=== PATIENT | male | born 1995 | race African-American/Black ===

== ENCOUNTER 2017-04-08 14:03 | Emergency (ER) | payer SELFPAY ==
--- NOTE | 2017-04-08 14:54 | ER Document Report ---
ED Medical Screen (RME) - General Chief Complaint: Nausea/Vomiting Stated Complaint: VOMITING Time Seen by Provider: 04/08/17 14:50 Notes: This 21-year-old male patient complains of nausea with occasional vomiting for 1 -2 weeks. There is also intermittent diarrhea. He reports weight loss. He does not have an appetite. When asked about fever, he states "I do be hot a lot ". He is on no regular medications, no past medical history. I have greeted and performed a rapid initial assessment of this patient. A comprehensive ED assessment and evaluation of the patient, analysis of test results and completion of the medical decision making process will be conducted by additional ED providers. - Related Data Allergies/Adverse Reactions: No Known Allergies Allergy (Verified 04/08/17 14:41) Past Medical History - Social History Chew tobacco use (# tins/day): No Frequency of alcohol use: Rare Drug Abuse: None Renal/ Medical History: Denies: Hx Peritoneal Dialysis - Immunizations Hx Diphtheria, Pertussis, Tetanus Vaccination: No Physical Exam - Vital signs Vitals: Temp Pulse Resp BP Pulse Ox 98.3 F 70 16 105/74 100 04/08/17 14:16 04/08/17 14:16 04/08/17 14:16 04/08/17 14:16 04/08/17 14:16 Course - Vital Signs Vital signs: Temp Pulse Resp BP Pulse Ox 98.3 F 70 16 105/74 100 04/08/17 14:16 04/08/17 14:16 04/08/17 14:16 04/08/17 14:16 04/08/17 14:16
[2017-04-08] MEDS ORDERED: ONDANSETRON 4 MG TAB.RAPDIS PO ONE (15:17)
[2017-04-08 15:25] LABS: ABSOLUTE EOSINOPHILS # (AUTO) 0.2 10^3/uL (0.0-0.6); ABSOLUTE LYMPHOCYTES (AUTO) 1.7 10^3/uL (0.5-4.7); ABSOLUTE MONOCYTES (AUTO) 0.6 10^3/uL (0.1-1.4); ABSOLUTE NEUT (AUTO) 2.4 10^3/uL (1.7-8.2); BASOPHILS % (AUTO) 0.8 % (0-2); EOSINOPHILS % (AUTO) 3.8 % (0-6); HEMATOCRIT 43.2 % (37.9-51.0); HEMOGLOBIN 14.7 g/dL (13.5-17.0); HGB HCT DIFFERENCE 0.9; LYMPHOCYTES % (AUTO) 34.8 % (13-45); MEAN CORPUSCULAR HEMOGLOBIN 32.2 pg (27.0-33.4); MEAN CORPUSCULAR HGB CONC 33.9 g/dL (32.0-36.0); MEAN CORPUSCULAR VOLUME 95 fl (80-97); MONOCYTES % (AUTO) 11.4 % (3-13); RED BLOOD COUNT 4.55 10^6/uL (4.35-5.55); RED CELL DISTRIBUTION WIDTH 12.6 % (11.5-14.0); SEGMENTED NEUTROPHILS % (AUTO) 49.2 % (42-78); WHITE BLOOD COUNT 4.9 10^3/uL (4.0-10.5)
[2017-04-08 15:27] LABS: APPEARANCE,URINE CLEAR; BILIRUBIN,URINE NEGATIVE (NEGATIVE); GLUCOSE, URINE NEGATIVE (NEGATIVE); KETONES,URINE NEGATIVE (NEGATIVE); LEUKOCYTE ESTERASE,URINE NEGATIVE (NEGATIVE); NITRITE,URINE NEGATIVE (NEGATIVE); PROTEIN,URINE NEGATIVE (NEGATIVE); URINE SPECIFIC GRAVITY 1.015; UROBILINOGEN,URINE NEGATIVE mg/dL (<2.0)
[2017-04-08 15:43] LABS: ALANINE AMINOTRANSFERASE 58 U/L (21-72); ALBUMIN 4.4 g/dL (3.5-5.0); ALKALINE PHOSPHATASE 55 U/L (38-126); ANION GAP 12 (5-19); ASPARTATE AMINO TRANSFERASE 35 U/L (17-59); BILIRUBIN,DIRECT 0.2 mg/dL (0.0-0.4); BILIRUBIN,TOTAL 0.8 mg/dL (0.2-1.3); BLOOD UREA NITROGEN 11 mg/dL (7-20); CALCIUM 9.9 mg/dL (8.4-10.2); CARBON DIOXIDE 24 mmol/L (22-30); CHLORIDE 107 mmol/L (98-107); CREATININE RESULT 1.06 mg/dL (0.52-1.25); GLUCOSE 85 mg/dL (75-110); MAGNESIUM 2.1 mg/dL (1.6-2.3); POTASSIUM 4.5 mmol/L (3.6-5.0); SODIUM 142.6 mmol/L (137-145)
[2017-04-08 15:45] LABS: URINE BARBITURATES SCREEN NEGATIVE; URINE METHADONE SCREEN NEGATIVE; URINE OPIATES LOW NEGATIVE; URINE PHENCYCLIDINE SCREEN NEGATIVE
--- NOTE | 2017-04-08 16:00 | ER Document Report ---
ED General - General Chief Complaint: Nausea/Vomiting Stated Complaint: VOMITING Time Seen by Provider: 04/08/17 14:50 Mode of Arrival: Ambulatory Information source: Patient Notes: 21-year-old male presents with complaints of nausea vomiting 1-2 times a day for the past 2 weeks. Patient denies any fevers chills. Patient admits it is green, denies any specific pain anywhere admits to bad taste believes he may have gastric reflux - HPI Onset: Other Onset/Duration: Intermittent Quality of pain: No pain Severity: Mild Pain Level: Denies Associated symptoms: Nausea, Vomiting Exacerbated by: Denies Relieved by: Denies Similar symptoms previously: No Recently seen / treated by doctor: No - Related Data Allergies/Adverse Reactions: No Known Allergies Allergy (Verified 04/08/17 14:41) Past Medical History - Social History Smoking Status: Current Every Day Smoker Cigarette use (# per day): Yes Chew tobacco use (# tins/day): No Smoking Education Provided: No Frequency of alcohol use: Rare Drug Abuse: None Family History: Reviewed & Not Pertinent Patient has suicidal ideation: No Patient has homicidal ideation: No Renal/ Medical History: Denies: Hx Peritoneal Dialysis - Immunizations Hx Diphtheria, Pertussis, Tetanus Vaccination: No Review of Systems - Review of Systems Notes: PHYSICAL EXAMINATION: GENERAL: Well-appearing, well-nourished and in no acute distress. HEAD: Atraumatic, normocephalic. EYES: Pupils equal round and reactive to light, extraocular movements intact, sclera anicteric, conjunctiva are normal. ENT: Nares patent, oropharynx clear without exudates. Moist mucous membranes. NECK: Normal range of motion, supple without lymphadenopathy LUNGS: Breath sounds clear to auscultation bilaterally and equal. No wheezes rales or rhonchi. HEART: Regular rate and rhythm without murmurs ABDOMEN: Soft, nontender, nondistended abdomen. No guarding, no rebound. No masses appreciated. Musculoskeletal: Normal range of motion, no pitting or edema. No cyanosis. NEUROLOGICAL: Cranial nerves grossly intact. Normal speech, normal gait. Normal sensory, motor exams PSYCH: Normal mood, normal affect. SKIN: Warm, Dry, normal turgor, no rashes or lesions noted. Physical Exam - Vital signs Vitals: Temp Pulse Resp BP Pulse Ox 98.3 F 70 16 105/74 100 04/08/17 14:16 04/08/17 14:16 04/08/17 14:16 04/08/17 14:16 04/08/17 14:16 Course - Re-evaluation Re-evalutation: 04/08/17 15:58 Labwork physical examination notes a very well-appearing male in no acute distress. Patient admits he has no pain. I will therefore start the patient on nausea control and medication for his gastric reflux otherwise he is stable for discharge After performing a Medical Screening Examination, I estimate there is LOW risk for ACUTE APPENDICITIS, BOWEL OBSTRUCTION, ACUTE CHOLECYSTITIS, PERFORATED DIVERTICULITIS, INCARCERATED HERNIA, PANCREATITIS, or PERFORATED ULCER, thus I consider the discharge disposition reasonable. Also, there is no evidence or peritonitis, sepsis, or toxicity. I have reevaluated this patient multiple times and no significant life threatening changes are noted. The patient and I have discussed the diagnosis and risks, and we agree with discharging home with close follow-up with the understanding that symptoms and presentations can change. We also discussed returning to the Emergency Department immediately if new or worsening symptoms occur. We have discussed the symptoms which are most concerning (e.g., bloody stool, fever, changing or worsening pain, intractable vomiting - standard verbal up date) that necessitate immediate return. - Vital Signs Vital signs: Temp Pulse Resp BP Pulse Ox 98.3 F 70 16 105/74 100 04/08/17 14:16 04/08/17 14:16 04/08/17 14:16 04/08/17 14:16 04/08/17 14:16 - Laboratory Result Diagrams: 04/08/17 15:06 04/08/17 15:06 Laboratory results interpreted by me: 04/08/17 15:06 Urine Ascorbic Acid 20 H Discharge - Discharge Clinical Impression: Nausea & vomiting Qualifiers: Vomiting type: unspecified Vomiting Intractability: non-intractable Qualified Code(s): R11.2 - Nausea with vomiting, unspecified GERD (gastroesophageal reflux disease) Qualifiers: Esophagitis presence: with esophagitis Qualified Code(s): K21.0 - Gastro- esophageal reflux disease with esophagitis Condition: Stable Disposition: HOME, SELF-CARE Instructions: Antinausea Medication ([facility]), Vomiting ([facility]) Prescriptions: Famotidine [Pepcid 20 mg Tablet] 20 mg PO DAILY #30 tablet Ondansetron HCl [Zofran] 4 mg PO Q6 #20 tablet Referrals: JOANNE TATE MD [ACTIVE STAFF] - Follow up tomorrow
[2017-04-08 16:38] VITALS: BP 123/74
== END 2017-04-08 16:19 | disposition home or self-care (01) ==
LOC: EDBD → ER 14:03
DX: K21.0 Gastro-esophageal reflux disease with esophagitis (principal); R11.2 Nausea with vomiting, unspecified; F17.210 Nicotine dependence, cigarettes, uncomplicated
CPT/HCPCS: 99283; 36415; 83735; 85025; 80053; 81001; 80307; S0119

== ENCOUNTER 2017-04-18 14:52 | Emergency (ER) | payer SELFPAY ==
[2017-04-18] MEDS ORDERED: IBUPROFEN 800 MG TABLET PO ONE (15:13)
[2017-04-18 15:21] VITALS: BP 139/83
--- NOTE | 2017-04-18 15:21 | ER Document Report ---
ED Extremity Problem, Upper - General Chief Complaint: Elbow Injury Stated Complaint: LEFT ELBOW PAIN Time Seen by Provider: 04/18/17 15:13 Mode of Arrival: Ambulatory Information source: Patient Notes: 21-year-old male presents to ED for pain to his left elbow. He states about 1230 to 1:00 he slipped while taking groceries out of into [place] slipped and fell on the grass landing on his elbow. States it is extremely painful to move his elbow. He states he has dislocated this elbow in the past and had surgery on it. - HPI Patient complains to provider of: Injury, Pain, Left, Elbow Onset: This afternoon Recent injury: Yes Where: Outdoors Quality of pain: Sharp Severity of pain: Moderate Pain Level: 4 Context: Fall Associated symptoms: Other - Pain and swelling to his left elbow Exacerbated by: Movement Similar symptoms previously: Yes Recently seen / treated by doctor: No - Related Data Allergies/Adverse Reactions: No Known Allergies Allergy (Verified 04/18/17 14:57) Past Medical History - General Information source: Patient - Social History Smoking Status: Current Every Day Smoker Cigarette use (# per day): Yes - Cigarettes a day Chew tobacco use (# tins/day): No Smoking Education Provided: Yes - In 2 minutes Frequency of alcohol use: None Drug Abuse: None Lives with: Alone - With his son Family History: DM. denies: Arthritis, CAD, COPD, CVA, Hyperlipidemia, Hypertension, Malignancy, Thyroid Disfunction - Past Medical History Cardiac Medical History: Reports: None Pulmonary Medical History: Reports: None EENT Medical History: Reports: None Neurological Medical History: Reports: None Endocrine Medical History: Reports: None Renal/ Medical History: Reports: None Malignancy Medical History: Reports None GI Medical History: Reports: None Musculoskeltal Medical History: Reports Hx Musculoskeletal Trauma - Dislocated left elbow Skin Medical History: Reports None Psychiatric Medical History: Reports: None Traumatic Medical History: Reports: None Infectious Medical History: Reports: None Past Surgical History: Reports: Hx Inguinal Hernia - Right, Hx Orthopedic Surgery - Left elbow to repair dislocation - Immunizations Hx Diphtheria, Pertussis, Tetanus Vaccination: No Review of Systems - Review of Systems Constitutional: No symptoms reported EENT: No symptoms reported Cardiovascular: No symptoms reported Respiratory: No symptoms reported Gastrointestinal: No symptoms reported Genitourinary: No symptoms reported Male Genitourinary: No symptoms reported Musculoskeletal: Other - Pain and swelling to left elbow Skin: No symptoms reported Hematologic/Lymphatic: No symptoms reported Neurological/Psychological: No symptoms reported Physical Exam - Vital signs Vitals: Temp Pulse Resp BP Pulse Ox 97.8 F 80 20 139/83 H 99 04/18/17 15:00 04/18/17 15:00 04/18/17 15:04/18/17 15:00 04/18/17 15:00 Interpretation: Normal - General General appearance: Appears well, Alert - HEENT Head: Normocephalic, Atraumatic Eyes: Normal Pupils: PERRL - Respiratory Respiratory status: No respiratory distress Chest status: Nontender Breath sounds: Normal Chest palpation: Normal - Cardiovascular Rhythm: Regular Heart sounds: Normal auscultation Murmur: No - Abdominal Inspection: Normal Distension: No distension Bowel sounds: Normal Tenderness: Nontender Organomegaly: No organomegaly - Back Back: Normal, Nontender - Extremities General upper extremity: Normal inspection, Normal color, Normal temperature General lower extremity: Normal inspection, Nontender, Normal color, Normal ROM , Normal temperature, Normal weight bearing. No: Rigo's sign Elbow: Tender, Ecchymosis, Limited ROM - Due to pain - Neurological Neuro grossly intact: Yes Cognition: Normal Orientation: AAOx4 [place] Coma Scale Eye Opening: Spontaneous [place] Coma Scale Verbal: Oriented [place] Coma Scale Motor: Obeys Commands Z[place] Coma Scale Total: 15 Speech: Normal Motor strength normal: LUE, RUE, LLE, RLE Sensory: Normal - Psychological Associated symptoms: Normal affect, Normal mood - Skin Skin Temperature: Warm Skin Moisture: Dry Skin Color: Normal Course - Re-evaluation Re-evalutation: 04/18/17 17:57 Discussed x-ray with Dr. Sheppard and written report given to patient after discussing with patient. Patient was put in a long arm posterior splint and a sling. Patient discharged home with a small prescription for [place] and instructed to follow-up with orthopedic. - Vital Signs Vital signs: Temp Pulse Resp BP Pulse Ox 97.8 F 80 20 139/83 H 99 04/18/17 15:00 04/18/17 15:00 04/18/17 15:00 04/18/17 15:00 04/18/17 15:00 - Diagnostic Test Radiology reviewed: Image reviewed, Reports reviewed Procedures - Immobilization Left Elbow Time completed: 17:00 Immobilizer type: Short Arm Posterior Performed by: PCT Post-Proc Neuro Vasc Exam: Normal Alignment checked and good: Yes Discharge - Discharge Clinical Impression: Left elbow pain Injury of left elbow Qualifiers: Encounter type: initial encounter Qualified Code(s): S59.902A - Unspecified injury of left elbow, initial encounter Condition: Stable Disposition: HOME, SELF-CARE Additional Instructions: You were seen today for a left elbow injury with pain to the elbow. SPRAIN: Your injury is a sprain. A sprain results from stretching or tearing of the ligaments, usually from a twisting injury. The ligaments will require time and protection in order to heal properly. Many sprains are quite disabling and should be taken seriously. The usual initial treatment of sprains is cold packs, elevation, and rest of the injured area. Your physician has assessed the seriousness of your ligament injury, and has outlined a treatment plan. Understand that this treatment may change, depending on how you progress. If a re-examination was recommended, it is important that you follow up as instructed. Call the doctor any time if there is severe pain, numbness, or loss of function in the injured area. SPLINT PRECAUTIONS: A splint has been placed. This will protect the area while healing begins. Your problem does NOT normally require a cast. It MUST, however, be held still! Keep the splint on ALL THE TIME until instructed to remove it by the doctor. As you begin to use the area, be careful. You shouldn't do anything which causes discomfort -- you may disturb the injury even with the splint in place. After the initial period of rest and elevation, if splint does not prevent pain when you move, come back. You may require placement of a different splint , or a cast. If there is unexpected severe pain, or numbness, discoloration, or swelling beyond the splint, you should return at once. If you feel that the splint has broken or become loose, come back. Sling to be Used You are to use a sling. This is to rest the area, and to prevent it from hanging downward. Use this sling for at least 48 hours (or longer if so instructed by the doctor). Some types of splints will break if not supported by the sling, so the sling must be used as long as the splint. Ice can be placed inside the sling over the injured area. Once you remove the sling, you should not encounter pain when you use the arm and hand. If you do feel pain beneath the cast or splint, you must continue use of the sling. ICE & ELEVATION: Apply ice packs frequently against the painful area. Many different schedules are recommended, such as "20 minutes on, 20 minutes off" or "one hour ice, two hours rest." If you need to work, you may need to go longer between ice treatments. You should plan to have the area ice packed AT LEAST one- fourth of the time. The ice should be applied over the wrap, tape, or splint, or over a layer of cloth -- not directly against the skin. Some ice bags have a built-in cloth and can be put directly on the skin. Your injured part should be elevated as much as possible over the next 48 hours. Try to keep the injury above the level of the heart. Avoid use of the injured area. Elevation and rest will decrease the swelling. USE OF [id number] IBUPROFEN: Ibuprofen (Advil, Nuprin, Medipren, Motrin IB) is a medication for fever and pain control. In addition, it has anti- inflammatory effects which may be beneficial, especially in the treatment of injuries. It's best to take ibuprofen with food. Persons with ulcer disease or allergy to aspirin should notify their physician of this before taking ibuprofen. Ibuprofen can be given every four to six hours, for a total of four doses daily. Age Pain or fever dose Antiinflammatory dose 6-8 yr 200 mg (1 tab) 200 mg (1 tab) 9-11 yr 200 mg (1 tab) 200-400 mg (1-2 tab) 11-14 yr 200-400 mg (1-2 tab) 400 mg (2 tab) 15-adult 400 mg (2 tab) 600 mg (3 tab) ORAL NARCOTIC MEDICATION: You have been given a prescription for pain control. This medication is a narcotic. It's best taken with food, as nausea can result if taken on an empty stomach. Don't operate machinery or drive within six hours of taking this medication. Do not combine this medicine with alcohol, or with any medication which can cause sedation (such as cold tablets or sleeping pills) unless you get permission from the physician. Narcotics tend to cause constipation. If possible, drink plenty of fluids and eat a diet high in fiber and fruits. Please be aware that prescription narcotics also have the potential for abuse. People become addicted to these medications because of the general sense of wellbeing that they induce. This feeling along with a significant reduction in tension, anxiety, and aggression provides a stimulating seductive quality to these drugs. Once your pain is under control, we encourage you to discard your unused narcotics. FOLLOW-UP CARE: If you have been referred to a physician for follow-up care, call the physician s office for an appointment as you were instructed or within the next two days. If you experience worsening or a significant change in your symptoms, notify the physician immediately or return to the Emergency Department at any time for re-evaluation. Prescriptions: Hydrocodone/Acetaminophen [[place] 5-325 mg Tablet] 1 tab PO Q6HP PRN #5 tablet PRN Reason: Forms: Elevated Blood Pressure, Smoking Cessation Education, Return to Work Referrals: ALLEN ROWE MD [ACTIVE STAFF] - Follow up as needed
--- NOTE | 2017-04-18 16:01 | RADIOLOGY REPORT (SQ) ---
EXAM DESCRIPTION: ELBOW LEFT OVER 2 VIEWS COMPLETED DATE/TIME: 04/18/2017 3:51 pm REASON FOR STUDY: pain injury COMPARISON: None. NUMBER OF VIEWS: Four views. TECHNIQUE: AP, lateral, and both oblique radiographic images acquired of the left elbow. LIMITATIONS: None. FINDINGS: MINERALIZATION: Normal. BONES: Several loose bodies lateral compartment. Osteochondroma or loose body adjacent to proximal u plush dresser. No acute fracture or dislocation. No worrisome bone lesions. JOINT: No effusion. SOFT TISSUES: No soft tissue swelling. No foreign body. OTHER: No other significant finding. IMPRESSION: NO RADIOGRAPHIC EVIDENCE OF ACUTE INJURY. TECHNICAL DOCUMENTATION: JOB ID: [id number] [employer]- All Rights Reserved
== END 2017-04-18 17:05 | disposition home or self-care (01) ==
LOC: EDBD → ER 14:52
PROC: 2W39X1Z Immobilization of Left Upper Extremity using Splint (ICD-10-PCS; principal; 2017-04-18)
DX: S59.902A Unspecified injury of left elbow, initial encounter (principal); M25.522 Pain in left elbow; W01.0XXA Fall on same level from slipping, tripping and stumbling without subsequent striking against object, initial encounter; Y93.89 Activity, other specified; Z98.890 Other specified postprocedural states; F17.210 Nicotine dependence, cigarettes, uncomplicated; Z71.6 Tobacco abuse counseling
CPT/HCPCS: 99283

== ENCOUNTER 2017-06-24 13:08 | Emergency (ER) | payer SELFPAY ==
[2017-06-24] MEDS ORDERED: ONDANSETRON HCL INJ/PF 4 MG/2 ML SDV IV ONE (13:54)
[2017-06-24] MEDS ORDERED: NORMAL SALINE 1000 ML 1,000 ML IV ONE (13:54)
--- NOTE | 2017-06-24 14:07 | ER Document Report ---
ED Medical Screen (RME) - General Chief Complaint: Abdominal Pain Stated Complaint: ABDOMINAL PAIN Time Seen by Provider: 06/24/17 13:53 Mode of Arrival: Ambulatory Information source: Patient TRAVEL OUTSIDE OF THE [place] IN LAST 30 DAYS: No - HPI Patient complains to provider of: abd pain Onset: Last week - pt with several day h/o generalized abdominal pain with vomiting and several lb. wt. loss - Related Data Allergies/Adverse Reactions: No Known Allergies Allergy (Verified 04/18/17 14:57) Past Medical History - Social History Chew tobacco use (# tins/day): No Frequency of alcohol use: Occasional Drug Abuse: Marijuana Neurological Medical History: Reports: Hx Migraine Renal/ Medical History: Denies: Hx Peritoneal Dialysis Musculoskeltal Medical History: Reports Hx Musculoskeletal Trauma - Dislocated left elbow Past Surgical History: Reports: Hx Abdominal Surgery - hernia repair 02/2017, Hx Inguinal Hernia - Right, Hx Orthopedic Surgery - Left elbow to repair dislocation - Immunizations Hx Diphtheria, Pertussis, Tetanus Vaccination: No Physical Exam - Vital signs Vitals: Temp Pulse Resp BP Pulse Ox 98.6 F 92 18 118/81 100 06/24/17 13:18 06/24/17 13:18 06/24/17 13:18 06/24/17 13:18 06/24/17 13:18 Course - Vital Signs Vital signs: Temp Pulse Resp BP Pulse Ox 98.6 F 92 18 118/81 100 06/24/17 13:18 06/24/17 13:18 06/24/17 13:18 06/24/17 13:18 06/24/17 13:18
--- NOTE | 2017-06-24 14:36 | ER Document Report ---
ED GI/ - General Mode of Arrival: Ambulatory TRAVEL OUTSIDE OF THE [place] IN LAST 30 DAYS: No - HPI Patient complains to provider of: Abdominal pain, Vomiting Onset: Other - Sunday (06/19/2017) Location: Epigastric Associated symptoms: Other - see above <MODE BARROS - Last Filed: 06/24/17 19:01> <SHAAN ORELLANA - Last Filed: 06/24/17 19:06> - General Chief Complaint: Abdominal Pain Stated Complaint: ABDOMINAL PAIN Time Seen by Provider: 06/24/17 13:53 Notes: Patient is a 21 year old male who presents to the ED with complaints of epigastric abdominal pain, nausea and vomiting since Sunday (06/19/2017). Patient states he has had a decreased appetite but he has had a small amount of water and crackers. Patient is unsure if his symptoms are related to stress. Patient also adds that he has gone from being 132 pounds to 117 pounds. Patient notes "streaks of blood" in his vomit. He is unsure if he has had a fever but states that he has felt "hot" and diaphoretic at night time. Patient denies diarrhea. Patient has taken [place] with some relief. Patient has been diagnosed with acid reflux in the past but states he has not taken his prescription medication because he lost it while at work. (MODE BARROS) - Related Data Allergies/Adverse Reactions: No Known Allergies Allergy (Verified 06/24/17 14:57) Past Medical History - General Information source: Patient - Social History Smoking Status: Current Every Day Smoker Chew tobacco use (# tins/day): No Smoking Education Provided: Yes - greater than 5 minutes Frequency of alcohol use: Occasional Drug Abuse: Marijuana Family History: DM Neurological Medical History: Reports: Hx Migraine Renal/ Medical History: Denies: Hx Peritoneal Dialysis Musculoskeltal Medical History: Reports Hx Musculoskeletal Trauma - Dislocated left elbow Past Surgical History: Reports: Hx Abdominal Surgery - hernia repair 02/2017, Hx Inguinal Hernia - Right, Hx Orthopedic Surgery - Left elbow to repair dislocation - Immunizations Hx Diphtheria, Pertussis, Tetanus Vaccination: No <MODE BARROS - Last Filed: 06/24/17 19:01> Review of Systems - Review of Systems Constitutional: See HPI, Diaphoresis - at night EENT: No symptoms reported Cardiovascular: No symptoms reported Respiratory: No symptoms reported Gastrointestinal: See HPI, Abdominal pain, Nausea, Vomiting, Poor appetite, Poor fluid intake, Blood in vomit - "streaks of blood". denies: Diarrhea Genitourinary: No symptoms reported Male Genitourinary: No symptoms reported Musculoskeletal: No symptoms reported Skin: No symptoms reported Hematologic/Lymphatic: No symptoms reported Neurological/Psychological: No symptoms reported <MODE BARROS - Last Filed: 06/24/17 19:01> Physical Exam <MODE BARROS - Last Filed: 06/24/17 19:01> <SHAAN ORELLANA - Last Filed: 06/24/17 19:06> - Vital signs Vitals: Temp Pulse Resp BP Pulse Ox 98.6 F 92 18 118/81 100 06/24/17 13:18 06/24/17 13:18 06/24/17 13:18 06/24/17 13:18 06/24/17 13:18 - Notes Notes: GENERAL: Alert, interacts well. No acute distress. HEAD: Normocephalic, atraumatic. EYES: Pupils equal, round, and reactive to light. Extraocular movements intact. ENT: Oral mucosa moist, tongue midline. NECK: Full range of motion. Supple. Trachea midline. LUNGS: Clear to auscultation bilaterally, no wheezes, rales, or rhonchi. No respiratory distress. HEART: Regular rate and rhythm. No murmurs, gallops, or rubs. ABDOMEN: Soft, epigastric tenderness, no RUQ tenderness. Non-distended. Bowel sounds present in all 4 quadrants. EXTREMITIES: Moves all 4 extremities spontaneously. No edema. No cyanosis. NEUROLOGICAL: Alert and oriented x3. Normal speech. PSYCH: Normal affect, normal mood. SKIN: Warm, dry, normal turgor. No rashes or lesions noted. (MODE BARROS) Course - Laboratory Result Diagrams: 06/24/17 14:08 06/24/17 14:08 <MODE BARROS - Last Filed: 06/24/17 19:01> - Laboratory Result Diagrams: 06/24/17 14:08 06/24/17 14:08 <SHAAN ORELLANA - Last Filed: 06/24/17 19:06> - Re-evaluation Re-evalutation: 06/24/17 16:16 CBC unremarkable, CMP shows slight hypernatremia at 145.7, total bilirubin and direct bilirubin both somewhat elevated at 1.9 and 0.5 respectively, LFTs normal , total protein and albumin also somewhat elevated, lipase normal, no sign of biliary obstruction, urinalysis unremarkable and does not show any signs of dehydration, no ketones, no signs of infection. Acute abdominal series does not show any acute obstructive process, no evidence of perforation. Patient's abdomen is benign, only mild tenderness to palpation epigastrically but no signs of pancreatitis. Patient is able to tolerate oral liquids without difficulty. Counseled on taking Zofran and Zantac or other similar antacid medication, returning to clear liquid diet and then slowly advancing. Discharged home. (SHAAN ORELLANA) - Vital Signs Vital signs: Temp Pulse Resp BP Pulse Ox 98.6 F 62 16 111/71 100 06/24/17 16:52 06/24/17 16:52 06/24/17 16:52 06/24/17 16:52 06/24/17 16:52 - Laboratory Laboratory results interpreted by me: 06/24/17 06/24/17 14:08 14:08 Sodium 145.7 H Calcium 10.4 H Total Bilirubin 1.9 H Direct Bilirubin 0.5 H Total Protein 9.3 H Albumin 5.4 H Urine Ascorbic Acid 40 H Discharge <MODE BARROS - Last Filed: 06/24/17 19:01> <SHAAN ORELLANA - Last Filed: 06/24/17 19:06> - Discharge Clinical Impression: Tobacco abuse, Tobacco abuse counseling Gastritis Qualifiers: Gastritis type: unspecified gastritis Chronicity: acute Gastritis bleeding: without bleeding Qualified Code(s): K29.00 - Acute gastritis without bleeding Condition: Stable Disposition: HOME, SELF-CARE Additional Instructions: Gastritis You have an inflammation of the stomach called gastritis. This commonly causes upper abdominal pain, nausea, and vomiting. In severe cases, bleeding of the stomach lining can occur. Gastritis can be caused by bacteria or viruses , alcohol, or stomach-irritating drugs. Begin with sips of clear liquids. Take increasing amounts of fluid over the first 24 hours. Then start small amounts of bland foods (such as dry toast , applesauce, mashed potato). Gradually resume your usual diet. You should take antacids every two hours until the pain has subsided. Acid suppressing medication called Zantac (ranitidine) 75 mg twice a day has been prescribed, this is also available [id number]. Avoid aspirin, caffeine, tobacco, and alcohol. If the abdominal pain worsens, or there is evidence of major bleeding in the stomach (such as black, tarry stool, bloody or black vomit, or lightheadedness), you should return immediately. Call the doctor if you aren't improved in 24 to 36 hours. Prescriptions: Ondansetron [Zofran Odt 4 mg Tablet] 1 - 2 tab PO Q4HP PRN #10 tab.rapdis PRN Reason: Ranitidine HCl 75 mg PO BID #30 tablet Forms: Smoking Cessation Education Referrals: MACHO GOMES MD [COMMUNITY BASED STAFF] - Follow up in 1 week Scribe Attestation: 06/24/17 19:06 I personally performed the services described in the documentation, reviewed and edited the documentation which was dictated to the scribe in my presence, and it accurately records my words and actions. (SHAAN ORELLANA) Scribe Documentation - Scribe Written by Sara:: sara Farias, 06/24/2017, [id number] acting as scribe for :: Glen <MODE BARROS - Last Filed: 06/24/17 19:01>
[2017-06-24 14:40] LABS: ABSOLUTE EOSINOPHILS # (AUTO) 0.1 10^3/uL (0.0-0.6); ABSOLUTE LYMPHOCYTES (AUTO) 1.3 10^3/uL (0.5-4.7); ABSOLUTE MONOCYTES (AUTO) 0.4 10^3/uL (0.1-1.4); ABSOLUTE NEUT (AUTO) 2.8 10^3/uL (1.7-8.2); BASOPHILS % (AUTO) 0.4 % (0-2); EOSINOPHILS % (AUTO) 1.5 % (0-6); HEMATOCRIT 48.2 % (37.9-51.0); HEMOGLOBIN 16.7 g/dL (13.5-17.0); HGB HCT DIFFERENCE 1.9; LYMPHOCYTES % (AUTO) 27.6 % (13-45); MEAN CORPUSCULAR HEMOGLOBIN 32.5 pg (27.0-33.4); MEAN CORPUSCULAR HGB CONC 34.7 g/dL (32.0-36.0); MEAN CORPUSCULAR VOLUME 94 fl (80-97); RED BLOOD COUNT 5.15 10^6/uL (4.35-5.55); RED CELL DISTRIBUTION WIDTH 12.7 % (11.5-14.0); SEGMENTED NEUTROPHILS % (AUTO) 61.5 % (42-78); WHITE BLOOD COUNT 4.6 10^3/uL (4.0-10.5)
[2017-06-24 14:42] LABS: APPEARANCE,URINE CLEAR; BILIRUBIN,URINE NEGATIVE (NEGATIVE); GLUCOSE, URINE NEGATIVE (NEGATIVE); KETONES,URINE NEGATIVE (NEGATIVE); LEUKOCYTE ESTERASE,URINE NEGATIVE (NEGATIVE); NITRITE,URINE NEGATIVE (NEGATIVE); PROTEIN,URINE NEGATIVE (NEGATIVE); UROBILINOGEN,URINE NEGATIVE mg/dL (<2.0)
[2017-06-24 14:54] LABS: ALANINE AMINOTRANSFERASE 42 U/L (21-72); ALBUMIN 5.4 g/dL (3.5-5.0); ALKALINE PHOSPHATASE 67 U/L (38-126); ANION GAP 17 (5-19); ASPARTATE AMINO TRANSFERASE 37 U/L (17-59); BILIRUBIN,DIRECT 0.5 mg/dL (0.0-0.4); BILIRUBIN,TOTAL 1.9 mg/dL (0.2-1.3); BLOOD UREA NITROGEN 14 mg/dL (7-20); CALCIUM 10.4 mg/dL (8.4-10.2); CARBON DIOXIDE 25 mmol/L (22-30); CHLORIDE 104 mmol/L (98-107); CREATININE RESULT 1.05 mg/dL (0.52-1.25); GLUCOSE 91 mg/dL (75-110); LIPASE 35.8 U/L (23-300); POTASSIUM 3.9 mmol/L (3.6-5.0); SODIUM 145.7 mmol/L (137-145); TOTAL PROTEIN 9.3 g/dL (6.3-8.2)
--- NOTE | 2017-06-24 15:27 | RADIOLOGY REPORT (SQ) ---
EXAM DESCRIPTION: ACUTE ABDOMEN SERIES COMPLETED DATE/TIME: 06/24/2017 3:19 pm REASON FOR STUDY: abd pain COMPARISON: None. NUMBER OF VIEWS: Three views. TECHNIQUE: Frontal chest, supine abdomen and upright/decubitus abdomen radiographic images acquired. LIMITATIONS: None. FINDINGS: CHEST: Lungs clear of infiltrates. FREE AIR: None. No abnormal gas collections. BOWEL GAS PATTERN: Nonobstructive pattern. No dilated loops or air fluid levels. CALCIFICATIONS: No suspicious calcifications. HARDWARE: None in the abdomen. SOFT TISSUES: No gross mass or suggestion of organomegaly. BONES: No acute fracture. No worrisome bone lesions. OTHER: No other significant finding. IMPRESSION: NO RADIOGRAPHIC EVIDENCE FOR ACUTE ABDOMINAL DISEASE. TECHNICAL DOCUMENTATION: JOB ID: [id number] [employer]- All Rights Reserved
[2017-06-24 16:54] VITALS: BP 111/71
== END 2017-06-24 16:50 | disposition home or self-care (01) ==
LOC: ER 13:08
DX: K29.00 Acute gastritis without bleeding (principal); R10.13 Epigastric pain; K92.0 Hematemesis; R63.0 Anorexia; R61 Generalized hyperhidrosis; E87.0 Hyperosmolality and hypernatremia; K21.9 Gastro-esophageal reflux disease without esophagitis; T50.906A Underdosing of unspecified drugs, medicaments and biological substances, initial encounter; Z91.128 Patient's intentional underdosing of medication regimen for other reason; F17.200 Nicotine dependence, unspecified, uncomplicated; Z71.6 Tobacco abuse counseling
CPT/HCPCS: 99284; 96361; 96374; 36415; 83690; 85025; 80053; 81001; 74022; J2405; J7030

== ENCOUNTER 2017-10-09 14:08 | Emergency (ER) | payer MEDICAID ==
[2017-10-09 14:41] VITALS: BP 114/73
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
[2017-10-09] MEDS ORDERED: IBUPROFEN 600 MG TABLET PO ONE (14:53)
--- NOTE | 2017-10-09 15:52 | RADIOLOGY REPORT (SQ) ---
EXAM DESCRIPTION: ELBOW LEFT OVER 2 VIEWS COMPLETED DATE/TIME: 10/09/2017 3:37 pm REASON FOR STUDY: left elbow pain s/p injury COMPARISON: 04/18/2017 NUMBER OF VIEWS: Four views. TECHNIQUE: AP, lateral, and both oblique radiographic images acquired of the left elbow. LIMITATIONS: None. FINDINGS: MINERALIZATION: Normal. BONES: No acute displaced fracture is present. Well corticated old avulsion fragment off the lateral epicondyle. Several small loose bodies are lyudmila dent along the radiohumeral articulation. Well corticated heterotopic bone along the ventral aspect of the proximal ulna, likely an old avulsio n fragment. JOINT: No effusion. SOFT TISSUES: Dorsal elbow soft tissue swelling over the olecranon. No radiopaque foreign body or so ft tissue gas OTHER: No other significant finding. IMPRESSION: Dorsal soft tissue swelling over the olecranon. No radiopaque foreign body or soft tiss ue gas No acute fracture or malalignment or joint effusion Evidence of old remote prior trauma, with lateral epicondyle and proximal ulna old healed avulsion fr rubi TECHNICAL DOCUMENTATION: JOB ID: [id number] [employer]- All Rights Reserved
== END 2017-10-09 16:23 | disposition home or self-care (01) ==
LOC: ER 14:08
DX: M25.522 Pain in left elbow (principal); Y04.0XXA Assault by unarmed brawl or fight, initial encounter; F17.200 Nicotine dependence, unspecified, uncomplicated; Z98.890 Other specified postprocedural states
CPT/HCPCS: 99283

== ENCOUNTER 2018-04-30 16:37 | Emergency (ER) | payer SELFPAY ==
[2018-04-30] MEDS ORDERED: LIDOCAINE 1% INJ-PF (10 MG/ML) 30 ML SDV INJ ONE (16:52)
--- NOTE | 2018-04-30 17:01 | ER Document Report ---
ED Medical Screen (RME) - General Chief Complaint: Laceration Stated Complaint: LACERATION TO RIGHT INDEX FINGER Time Seen by Provider: 04/30/18 16:52 Mode of Arrival: Ambulatory Information source: Patient Notes: 21-year-old whose tetanus is up-to-date cut his right index finger at the DIP joint with a knife that he had in his pocket. TRAVEL OUTSIDE OF THE [place] IN LAST 30 DAYS: No - Related Data Allergies/Adverse Reactions: No Known Allergies Allergy (Verified 06/24/17 14:57) Past Medical History - Social History Chew tobacco use (# tins/day): No Frequency of alcohol use: Social Drug Abuse: None Neurological Medical History: Reports: Hx Migraine Renal/ Medical History: Denies: Hx Peritoneal Dialysis GI Medical History: Reports: Hx Gastroesophageal Reflux Disease Musculoskeltal Medical History: Reports Hx Musculoskeletal Trauma - Dislocated left elbow Past Surgical History: Reports: Hx Abdominal Surgery - hernia repair 02/2017, Hx Inguinal Hernia - Right, Hx Orthopedic Surgery - Left elbow to repair dislocation - Immunizations Hx Diphtheria, Pertussis, Tetanus Vaccination: No Physical Exam - Vital signs Vitals: Temp Pulse Resp BP Pulse Ox 98.2 F 77 14 127/80 H 100 04/30/18 16:48 04/30/18 16:48 04/30/18 16:48 04/30/18 16:48 04/30/18 16:48 Course - Vital Signs Vital signs: Temp Pulse Resp BP Pulse Ox 98.2 F 77 14 127/80 H 100 04/30/18 16:48 04/30/18 16:48 04/30/18 16:48 04/30/18 16:48 04/30/18 16:48
[2018-04-30] MEDS ORDERED: DIPH/PERTUSS(ACELL)/TETANUS VAC/PF 0.5 ML SYR (>=10YO) IM ONE (18:26)
--- NOTE | 2018-04-30 18:38 | ER Document Report ---
ED Wound - General Chief Complaint: Laceration Stated Complaint: LACERATION TO RIGHT INDEX FINGER Time Seen by Provider: 04/30/18 16:52 Mode of Arrival: Ambulatory Information source: Patient TRAVEL OUTSIDE OF THE [place] IN LAST 30 DAYS: No - HPI Patient complains to provider of: Laceration Occurred: Just prior to arrival Notes: Patient is here with complaint of laceration to the right index finger. He states that he was putting his hand in his pocket in his pocket knife was accidentally open and he lacerated his right index finger at the PIP. He is unsure of his last tetanus. He denies any numbness, tingling, weakness. Bleeding is controlled. No nausea, vomiting, diarrhea. He denies any other complaints at this time. - Related Data Allergies/Adverse Reactions: No Known Allergies Allergy (Verified 06/24/17 14:57) Past Medical History - General Information source: Patient - Social History Smoking Status: Current Every Day Smoker Chew tobacco use (# tins/day): No Frequency of alcohol use: Social Drug Abuse: None Family History: DM Patient has suicidal ideation: No Patient has homicidal ideation: No Neurological Medical History: Reports: Hx Migraine Renal/ Medical History: Denies: Hx Peritoneal Dialysis GI Medical History: Reports: Hx Gastroesophageal Reflux Disease Musculoskeltal Medical History: Reports Hx Musculoskeletal Trauma - Dislocated left elbow Past Surgical History: Reports: Hx Abdominal Surgery - hernia repair 02/2017, Hx Inguinal Hernia - Right, Hx Orthopedic Surgery - Left elbow to repair dislocation - Immunizations Hx Diphtheria, Pertussis, Tetanus Vaccination: No Review of Systems - Review of Systems -: Yes All other systems reviewed and negative Physical Exam - Vital signs Vitals: Temp Pulse Resp BP Pulse Ox 98.2 F 77 14 127/80 H 100 04/30/18 16:48 04/30/18 16:48 04/30/18 16:48 04/30/18 16:48 04/30/18 16:48 - Notes Notes: GENERAL: alert, cooperative, nontoxic, no distress. HEAD: normocephalic, atraumatic EYES: conjunctiva pink without discharge, no external redness or swelling. EARS: no external swelling, no external redness NOSE: atraumatic, no external swelling MOUTH/THROAT: mucous membranes moist and pink NECK: soft, supple, full range of motion, no meningismus. CHEST: no distress, lungs clear and equal throughout. No wheezing, rales, rhonchi. CARDIAC: regular rate and rhythm, no murmur, normal capillary refill, normal pulses. BACK: full range of motion, no CVA tenderness. EXTREMITIES: full range of motion of all extremities. No redness, no swelling. 2-1/2 cm laceration across the PIP of the right index finger. Laceration does appear to involve the extensor howe of the tendons. He does have extension of the right index finger. Normal cap refill and sensation. Normal pulses. Compartments are soft. Bleeding is controlled. No foreign body. NEURO: alert and oriented 3, no focal deficits, full range of motion of all extremities. PYSCH: appropriate mood, affect. Patient is cooperative. SKIN: pink, warm, dry, no rash. Course - Re-evaluation Re-evalutation: 04/30/18 18:36 Patient is nontoxic-appearing with stable vitals. Here with complaints of right index finger laceration. He was putting his hand and pocket his pocket knife was opened and he accidentally lacerated his PIP of his right index finger. He is noted to have a laceration of the right index finger at the PIP with laceration of the extensor tendon howe. He is able to extend his finger. He has normal cap refill and sensation distally. No foreign body. Normal pulse and sensation. Laceration was repaired. Tetanus was updated. He was placed in a finger splint. He will be discharged home on prophylactic Keflex. He is referred to Dr. Hugo for follow-up due to the extensor tendon howe laceration. He was instructed to keep his finger extended at all times until he follows up with orthopedics. He should follow-up sooner for worsening pain, fever, redness, drainage, numbness, tingling, weakness, any further concerns. The patient is noted to have elevated blood pressure during today's emergency department visit. The patient was informed of this finding. The patient was instructed that this may be related to pre-hypertension and requires further evaluation with a primary care provider. The patient has no hypertensive symptoms at this time. The patient's emergency department workup and current diagnosis were explained to the patient and or family. Follow-up instructions were provided. Medications if prescribed were discussed. Instructions for when to return to the emergency department including specific worrisome symptoms were discussed with the patient and/or family. - Vital Signs Vital signs: Temp Pulse Resp BP Pulse Ox 98.2 F 77 14 127/80 H 100 04/30/18 16:48 04/30/18 16:48 04/30/18 16:48 04/30/18 16:48 04/30/18 16:48 Procedures - Immobilization right index finger Pre-Proc Neuro Vasc Exam: Normal Immobilizer type: Finger splint (Static) Performed by: PCT Post-Proc Neuro Vasc Exam: Normal Alignment checked and good: Yes - Laceration/Wound Repair Right index finger Wound length (cm): 2.5 Wound's Depth, Shape: Into muscle, Linear Laceration pre-procedure: Sterile PPE donned, Sterile drapes applied, Shur- Clens applied Anesthetic type: 1% Lidocaine Wound explored: Clean, No foreign body removed Irrigated w/ Saline (mLs): 100 Wound Repaired With: Sutures Suture Size/Type: 4:0, Ethilon Number of Sutures: 5 Layer Closure?: No Post-procedure wound care: Sterile dressing applied, Splint applied Post-procedure NV exam normal: Yes Complications: No Discharge - Discharge Clinical Impression: Laceration of right index finger with tendon involvement Qualifiers: Encounter type: initial encounter Qualified Code(s): S61.210A - Laceration without foreign body of right index finger without damage to nail, initial encounter; S66.921A - Laceration of unspecified muscle, fascia and tendon at wrist and hand level, right hand, initial encounter; S66.921A - Laceration of unspecified muscle, fascia and tendon at wrist and hand level, right hand, initial encounter Condition: Stable Disposition: HOME, SELF-CARE Instructions: Antibiotic Ointment Protection ([facility]), Laceration Care ([facility]), Prophylactic Antibiotic ([facility]), Soap Cleansing ([facility]), Tetanus Immunization Given ([facility]) Additional Instructions: Take medications as prescribed. Clean wound twice a day with soap and water and apply a thin layer of bacitracin. Keep your finger in extension. Wear splint at all times. Follow-up with orthopedic hand surgeon at the next available appointment for recheck. Follow-up in 10-12 days for suture removal. Follow-up sooner for worsening pain, fever, redness, drainage, numbness, tingling, weakness, any further concerns. Prescriptions: Cephalexin Monohydrate [Keflex 500 mg Capsule] 500 mg PO BID #14 capsule Naproxen [Naprosyn] 500 mg PO BID #20 tablet Forms: Elevated Blood Pressure, Smoking Cessation Education Referrals: TIFFANIE HUGO DO [ACTIVE STAFF] - Follow up as needed
[2018-04-30 20:31] VITALS: BP 139/92
== END 2018-04-30 19:25 | disposition home or self-care (01) ==
LOC: ER 16:37
PROC: 0HQFXZZ Repair Right Hand Skin, External Approach (ICD-10-PCS; principal; 2018-04-30)
DX: S61.210A Laceration without foreign body of right index finger without damage to nail, initial encounter (principal); S66.921A Laceration of unspecified muscle, fascia and tendon at wrist and hand level, right hand, initial encounter; W26.0XXA Contact with knife, initial encounter; R03.0 Elevated blood-pressure reading, without diagnosis of hypertension; F17.200 Nicotine dependence, unspecified, uncomplicated
CPT/HCPCS: 99283; 90471; 90715; 12001; J3490

== ENCOUNTER 2018-06-01 23:41 | Emergency (ER) | payer SELFPAY ==
--- NOTE | 2018-06-02 01:04 | ER Document Report ---
ED Suture/Wound Recheck - General Chief Complaint: Suture Removal Stated Complaint: FINGER PAIN Time Seen by Provider: 06/02/18 00:49 Notes: Patient is a 22-year-old male that comes emergency department for chief complaint of right finger sutures that were placed on 04/30/2018, over a month ago, he states he was too busy and did not have the time to come take the sutures out. He states the area started to hurt a little bit but denies reinjury or any other concerns. TRAVEL OUTSIDE OF THE [place] IN LAST 30 DAYS: No - Related Data Allergies/Adverse Reactions: No Known Allergies Allergy (Verified 06/24/17 14:57) Past Medical History - General Information source: Patient - Social History Smoking Status: Never Smoker Drug Abuse: None Lives with: Spouse/Significant other Family History: DM Neurological Medical History: Reports: Hx Migraine Renal/ Medical History: Denies: Hx Peritoneal Dialysis GI Medical History: Reports: Hx Gastroesophageal Reflux Disease Musculoskeletal Medical History: Reports Hx Musculoskeletal Trauma - Dislocated left elbow Past Surgical History: Reports: Hx Abdominal Surgery - hernia repair 02/2017, Hx Inguinal Hernia - Right, Hx Orthopedic Surgery - Left elbow to repair dislocation - Immunizations Hx Diphtheria, Pertussis, Tetanus Vaccination: No Review of Systems - Review of Systems Constitutional: No symptoms reported EENT: No symptoms reported Cardiovascular: No symptoms reported Respiratory: No symptoms reported Gastrointestinal: No symptoms reported Genitourinary: No symptoms reported Male Genitourinary: No symptoms reported Musculoskeletal: See HPI Skin: See HPI Hematologic/Lymphatic: No symptoms reported Neurological/Psychological: No symptoms reported Physical Exam - Vital signs Vitals: Temp Pulse Resp BP Pulse Ox 99.0 F 79 18 106/67 98 06/02/18 00:20 06/02/18 00:20 06/02/18 00:20 06/02/18 00:20 06/02/18 00:20 - Notes Notes: GENERAL: Alert, interacts well. No acute distress. HEAD: Normocephalic, atraumatic. EYES: Pupils equal, round, and reactive to light. Extraocular movements intact. ENT: Oral mucosa moist, tongue midline. NECK: Full range of motion. Supple. Trachea midline. LUNGS: Clear to auscultation bilaterally, no wheezes, rales, or rhonchi. No respiratory distress. HEART: Regular rate and rhythm. No murmur ABDOMEN: Soft, non-tender. Non-distended. Bowel sounds present in all 4 quadrants. EXTREMITIES: Moves all 4 extremities spontaneously. No edema, normal radial and dorsalis pedis pulses bilaterally. No cyanosis. Index finger of the right hand with sutures just past the PIP, erythema over the side of the finger laterally, mild tenderness, suture still in place. Full range of motion of the finger. Normal capillary refill and sensation. Normal exam otherwise. BACK: no cervical, thoracic, lumbar midline tenderness. No saddle anesthesia, normal distal neurovascular exam. NEUROLOGICAL: Alert and oriented x3. Normal speech. [cranial nerves II through XII grossly intact]. PSYCH: Normal affect, normal mood. SKIN: Warm, dry, normal turgor. No rashes or lesions noted. Course - Re-evaluation Re-evalutation: There is a small amount of erythema and tenderness over the side of the anger where the sutures were placed, remaining areas unremarkable. All sutures removed without difficulty. No bleeding or purulent drainage, no swelling, suspect this is irritation, no overt infection. Decision was made to cover patient with antibiotic because of his exam however, discussed expectations, follow-up, and return precautions with patient. Patient states understanding and agreement. - Vital Signs Vital signs: Temp Pulse Resp BP Pulse Ox 98.9 F 75 18 110/71 99 06/02/18 01:14 06/02/18 01:14 06/02/18 01:14 06/02/18 01:14 06/02/18 01:14 Discharge - Discharge Clinical Impression: Encounter for removal of sutures Condition: Stable Disposition: HOME, SELF-CARE Additional Instructions: The sutures have been removed, there is some concern for early infection, as result you have been placed on an antibiotic. Take to completion. Keep clean, clean with soap and water, you can apply topical antibiotic to the area. Follow -up with primary care. Return immediately if you develop any concerning symptoms including swelling, increased redness, fever, discolored drainage, or any other concerning symptoms. Prescriptions: Cephalexin Monohydrate [Keflex 500 mg Capsule] 500 mg PO QID #28 capsule
[2018-06-02 01:26] VITALS: BP 110/71
== END 2018-06-02 01:14 | disposition home or self-care (01) ==
LOC: ER 23:41
DX: S61.210D Laceration without foreign body of right index finger without damage to nail, subsequent encounter (principal); X58.XXXD Exposure to other specified factors, subsequent encounter

== ENCOUNTER 2018-06-12 09:10 | Emergency (ER) | payer SELFPAY ==
[2018-06-12 09:19] VITALS: BP 102/64
--- NOTE | 2018-06-12 09:59 | ER Document Report ---
HPI - HPI Patient complains to provider of: back rash Onset: Other - 1 year Pain Level: 4 Context: 22-year-old male complaining of a rash that flakes that has been there for about 1 year. When he was younger he used some kind of shampoo the made it go away but then it reoccurred recently. He has not seen a lath hand. Associated Symptoms: None Exacerbated by: Denies Relieved by: Other - Some counter shampoo helped at years ago - ROS ROS below otherwise negative: Yes Systems Reviewed and Negative: Yes All other systems reviewed and negative Past Medical History - General Information source: Patient - Social History Smoking Status: Never Smoker Frequency of alcohol use: None Drug Abuse: None Lives with: Family Family History: DM Neurological Medical History: Reports: Hx Migraine Renal/ Medical History: Denies: Hx Peritoneal Dialysis GI Medical History: Reports: Hx Gastroesophageal Reflux Disease Musculoskeletal Medical History: Reports Hx Musculoskeletal Trauma - Dislocated left elbow Past Surgical History: Reports: Hx Abdominal Surgery - hernia repair 02/2017, Hx Inguinal Hernia - Right, Hx Orthopedic Surgery - Left elbow to repair dislocation - Immunizations Hx Diphtheria, Pertussis, Tetanus Vaccination: No Vertical Provider Document - CONSTITUTIONAL Agree With Documented VS: Yes Exam Limitations: No Limitations - INFECTION CONTROL TRAVEL OUTSIDE OF THE [place] IN LAST 30 DAYS: No - NEURO Level of Consciousness: Awake, Alert - DERM Integumentary: Rash - Typical tinea versicolor on his chest and back Course - Vital Signs Vital signs: Temp Pulse Resp BP Pulse Ox 98.1 F 97 14 102/64 97 06/12/18 09:18 06/12/18 09:18 06/12/18 09:18 06/12/18 09:18 06/12/18 09:18 Discharge - Discharge Clinical Impression: tinea versicolor Condition: Good Disposition: HOME, SELF-CARE Instructions: Topical Antifungal ([facility]) Additional Instructions: over the counter selsun blue (get generic) daily to kill the fungus see lath hand if persists Referrals: AARON MADRIGAL, [ACTIVE STAFF] - Follow up as needed
== END 2018-06-12 10:30 | disposition home or self-care (01) ==
LOC: ER 09:10
DX: B36.0 Pityriasis versicolor (principal)
CPT/HCPCS: 99282

== ENCOUNTER 2018-06-20 01:12 | Emergency (ER) | payer SELFPAY ==
[2018-06-20] MEDS ORDERED: LORAZEPAM 1 MG TABLET PO ONE (06:12)
--- NOTE | 2018-06-20 07:07 | ER Document Report ---
Addendum entered and electronically signed by PRINCESS GRACE FNP-C 06/20/18 13:27: Discharge - Discharge Clinical Impression: Anxiety and depression Condition: Stable Disposition: HOME, SELF-CARE Instructions: Anxiety ([facility]) Additional Instructions: You were seen in the Emergency Department and evaluated by the Medical and Behavioral Health Team for anxiety and determined to be appropriate for discharge. You were referred to multiple resources to include [facility], [facility], and community based mental health providers for ongoing care and treatment. You are encouraged to follow through with these referrals. Medication Recommendation: Buspar 10 mg twice per day Anxiety Anxiety affects your health in many ways. Anxiety alone can cause palpitations, sweats, chest pains, abdominal pains, shortness of breath, and headaches. It contributes to ulcer disease, high blood pressure, irritable bowel syndrome, and has been shown to cause flare-ups of many other diseases. Anxiety is not a simple disorder to treat. If the anxiety is due to recent life stresses, you may simply need time to "work through" the changes. If the anxiety is due to an underlying unhappiness with yourself or due to psychiatric disturbance, professional help will be needed. Your physician can refer you for further help if needed. Anti-anxiety medication is occasionally given if the stress is acute or if you are having trouble sleeping. Chronic or frequent use of these medications is not a good idea because the body becomes reliant on it, preventing you from dealing with life's normal stresses. Prescriptions: Buspirone HCl [Buspar 10 mg Tablet] 10 mg PO BID #20 tablet Referrals: [facility] [Outside] - Follow up as needed WILSON FLORES MD [ACTIVE STAFF] - Follow up as needed Original Note: ED General - General Mode of Arrival: Ambulatory Information source: Patient TRAVEL OUTSIDE OF THE [place] IN LAST 30 DAYS: No - General Chief Complaint: Anxiety Stated Complaint: ANXIETY PROBLEMS Time Seen by Provider: 06/20/18 04:57 Notes: Patient is a 22-year-old male who presents with chief complaint of bad anxiety and sleeplessness. Patient reports he has not slept for 3 days. Patient denies any past medical history, surgical history does not take any medications. Patient has not taken any medications for his anxiety or sleeplessness. 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 Patient reports he is having a hard time with this as he had to leave his children with his parents. ( YOSVANY DINH) - Related Data Allergies/Adverse Reactions: No Known Allergies Allergy (Verified 06/24/17 14:57) Past Medical History - General Information source: Patient - Social History Smoking Status: Current Every Day Smoker Frequency of alcohol use: Rare Drug Abuse: None Lives with: Spouse/Significant other Family History: DM Patient has suicidal ideation: No Patient has homicidal ideation: No Neurological Medical History: Reports: Hx Migraine Renal/ Medical History: Denies: Hx Peritoneal Dialysis GI Medical History: Reports: Hx Gastroesophageal Reflux Disease Musculoskeletal Medical History: Reports Hx Musculoskeletal Trauma - Dislocated left elbow Past Surgical History: Reports: Hx Abdominal Surgery - hernia repair 02/2017, Hx Inguinal Hernia - Right, Hx Orthopedic Surgery - Left elbow to repair dislocation - Immunizations Hx Diphtheria, Pertussis, Tetanus Vaccination: No Review of Systems - Review of Systems Constitutional: No symptoms reported EENT: No symptoms reported Cardiovascular: No symptoms reported Respiratory: No symptoms reported Gastrointestinal: No symptoms reported Genitourinary: No symptoms reported Male Genitourinary: No symptoms reported Musculoskeletal: No symptoms reported Skin: No symptoms reported Hematologic/Lymphatic: No symptoms reported Neurological/Psychological: Anxiety Physical Exam - Vital signs Vitals: Temp Pulse Resp BP Pulse Ox 99.5 F 108 H 20 134/109 H 98 06/20/18 01:19 06/20/18 01:19 06/20/18 01:19 06/20/18 01:19 06/20/18 01:19 - Notes Notes: PHYSICAL EXAMINATION: GENERAL: Well-appearing, well-nourished and in no acute distress. HEAD: Atraumatic, normocephalic. EYES: Pupils equal round and reactive to light, extraocular movements intact, sclera anicteric, conjunctiva are normal. ENT: Nares patent, oropharynx clear without exudates. Moist mucous membranes. NECK: Normal range of motion, supple without lymphadenopathy LUNGS: Breath sounds clear to auscultation bilaterally and equal. No wheezes rales or rhonchi. HEART: Regular rate and rhythm without murmurs ABDOMEN: Soft, nontender, nondistended abdomen. No guarding, no rebound. No masses appreciated. Musculoskeletal: Normal range of motion, no pitting or edema. No cyanosis. NEUROLOGICAL: Cranial nerves grossly intact. Normal speech, normal gait. Normal sensory, motor exams PSYCH: Very anxious, tearful. SKIN: Warm, Dry, normal turgor, no rashes or lesions noted. (YOSVANY DINH) Course - Re-evaluation Re-evalutation: Otherwise healthy 22-year-old male presents to emergency room with chief complaint of acute anxiety attack. Patient has not had any history of anxiety. 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 Patient is tearful, shaky and hyperventilating on my initial assessment. Patient will be given 1 mg of Ativan p.o. and will reevaluate. Patient with some relief of his symptoms after administration of Ativan. Patient became tearful again when talking about his family situation and life situations. I did speak with patient and asked if you be willing to stay until morning to speak with psych so that we can line him up with some outpatient resources. Patient did agree to stay and speak with psych. Patient denies any suicidal or homicidal ideation has not been placed on a psych hold Bedside handoff to Delfina Grace NP. (YOSVANY DINH) Disposition given by Yosvany Dinh NP at 0715, waiting for mental health to evaluate patient. Patient is afebrile vitals stable and no distress but does appear to be anxious. 1000-facility mental health consult. Patient remains afebrile vitals stable still anxious however no distress. mental health evaluated patient at 1300, advised BuSpar 10 mg now, they want to see how he does with BuSpar, may keep him for a couple of hours to see how he does. Patient is stable in room. (PRINCESS GRACE) - Vital Signs Vital signs: Temp Pulse Resp BP Pulse Ox 99.5 F 108 H 20 134/100 H 98 06/20/18 01:25 06/20/18 01:25 06/20/18 01:25 06/20/18 01:25 06/20/18 01:25 Discharge - Discharge Clinical Impression: Anxiety and depression Condition: Stable Disposition: HOME, SELF-CARE Instructions: Anxiety ([facility]) Additional Instructions: You were seen in the Emergency Department and evaluated by the Medical and Behavioral Health Team for anxiety and determined to be appropriate for discharge. You were referred to multiple resources to include [facility], [facility], and community based mental health providers for ongoing care and treatment. You are encouraged to follow through with these referrals. Medication Recommendation: Buspar 10 mg twice per day Anxiety Anxiety affects your health in many ways. Anxiety alone can cause palpitations, sweats, chest pains, abdominal pains, shortness of breath, and headaches. It contributes to ulcer disease, high blood pressure, irritable bowel syndrome, and has been shown to cause flare-ups of many other diseases. Anxiety is not a simple disorder to treat. If the anxiety is due to recent life stresses, you may simply need time to "work through" the changes. If the anxiety is due to an underlying unhappiness with yourself or due to psychiatric disturbance, professional help will be needed. Your physician can refer you for further help if needed. Anti-anxiety medication is occasionally given if the stress is acute or if you are having trouble sleeping. Chronic or frequent use of these medications is not a good idea because the body becomes reliant on it, preventing you from dealing with life's normal stresses. Referrals: [facility] [Outside] - Follow up as needed
[2018-06-20] MEDS ORDERED: BUSPIRONE HCL 10 MG TABLET PO ONE (13:02)
[2018-06-20 13:46] VITALS: BP 128/79
[2018-06-20] MEDS ORDERED: BUSPIRONE HCL 10 MG TABLET PO SCH (18:00)
== END 2018-06-20 13:45 | disposition home or self-care (01) ==
LOC: ER 01:12
DX: F31.9 Bipolar disorder, unspecified (principal); F32.9 Major depressive disorder, single episode, unspecified; F17.200 Nicotine dependence, unspecified, uncomplicated
CPT/HCPCS: 99283

== ENCOUNTER 2018-08-12 20:43 | Emergency (ER) | payer SELFPAY ==
--- NOTE | 2018-08-13 00:46 | ER Document Report ---
HPI - HPI Patient complains to provider of: Finger pain, skin rash Onset/Duration: Persistent Quality of pain: Achy Pain Level: 4 Context: Patient states that he lacerated his finger in April and did not know that he was supposed to get the sutures out and left the sutures in until the end of May. Patient complains of continued right finger pain and swelling at the site where he had the laceration. Patient denies any new injury. Patient additionally complains of pruritic skin rash to the trunk upper extremities and neck. Patient states that he has had the rash since May of this year although areas of the rash have been present since October of last year. Patient states that he had a similar rash when he was younger and was treated for a fungal infection. Associated Symptoms: Other - Right second finger pain. denies: Fever Exacerbated by: Movement Relieved by: Denies Similar symptoms previously: Yes - Skin rash Recently seen / treated by doctor: No - ROS ROS below otherwise negative: Yes Systems Reviewed and Negative: Yes All other systems reviewed and negative - CONSTITUTIONAL Constitutional: DENIES: Fever - EENT EENT: DENIES: Sore Throat - NEURO Neurology: DENIES: Headache - GASTROINTESTINAL Gastrointestinal: DENIES: Nausea - MUSCULOSKELETAL Musculoskeletal: REPORTS: Extremity pain - left index finger, Swelling - DERM Skin Problems: Rash Past Medical History - General Information source: Patient - Social History Smoking Status: Current Every Day Smoker Chew tobacco use (# tins/day): No Smoking Education Provided: Yes Frequency of alcohol use: None Drug Abuse: None Occupation: [employer] Lives with: Family Family History: DM Patient has suicidal ideation: No Patient has homicidal ideation: No Neurological Medical History: Reports: Hx Migraine Renal/ Medical History: Denies: Hx Peritoneal Dialysis GI Medical History: Reports: Hx Gastroesophageal Reflux Disease Musculoskeletal Medical History: Reports Hx Musculoskeletal Trauma - Dislocated left elbow Past Surgical History: Reports: Hx Abdominal Surgery - hernia repair 02/2017, Hx Inguinal Hernia - Right, Hx Orthopedic Surgery - Left elbow to repair dislocation - Immunizations Hx Diphtheria, Pertussis, Tetanus Vaccination: No Vertical Provider Document - CONSTITUTIONAL Agree With Documented VS: Yes Exam Limitations: No Limitations General Appearance: WD/WN, No Apparent Distress - INFECTION CONTROL TRAVEL OUTSIDE OF THE [place] IN LAST 30 DAYS: No - HEENT HEENT: Atraumatic, Normal ENT Exam, Normocephalic - NECK Neck: Normal Inspection - RESPIRATORY Respiratory: Breath Sounds Normal, No Respiratory Distress - CARDIOVASCULAR Cardiovascular: Regular Rate, Regular Rhythm - BACK Back: Normal Inspection - MUSCULOSKELETAL/EXTREMETIES Musculoskeletal/Extremeties: MAEW, Tender - Right second finger tenderness about the PIP joint with mild swelling, normal skin color and temperature. No tendon deficit - NEURO Level of Consciousness: Awake, Alert, Appropriate Motor/Sensory: No Motor Deficit, No Sensory Deficit - DERM Integumentary: Warm, Dry, Rash - Patient with plaque-like rash with areas of scaling to trunk extremities and neck area, patient does have some hypopigmented areas to chin Course - Re-evaluation Re-evalutation: 08/13/18 00:42 Patient presents with a rash concerning for tinea versicolor patient states that parts of the rash have been present since October of last year and are similar to a fungal rash he has had in the past. Will give patient a course of topical antifungal medication to treat. Patient encouraged to follow-up with dermatology for further evaluation. Patient also encouraged to follow-up with orthopedics for further evaluation of persistent right finger pain 08/13/18 00:47 - Vital Signs Vital signs: Temp Pulse Resp BP Pulse Ox 98.8 F 102 H 18 97/60 L 99 08/12/18 21:24 08/12/18 21:24 08/12/18 21:24 08/12/18 21:24 08/12/18 21:24 Discharge - Discharge Clinical Impression: Skin rash, Finger pain, right Condition: Stable Disposition: HOME, SELF-CARE Instructions: Anti-Inflammatory Medication ([facility]), Tinea Versicolor ([facility]), Topical Antifungal ([facility]) Additional Instructions: Return immediately for any new or worsening symptoms Followup with your primary care provider, call tomorrow to make a followup appointment Follow-up with orthopedics for further evaluation of right finger pain. Follow-up with dermatology for further evaluation of skin rash Prescriptions: Ketoconazole [Nizoral A-D] 200 ml TP ONCE PRN #200 shampoo PRN Reason: Naproxen [Naprosyn 250 Nmg Tablet] 1 tab PO BID #14 tablet Forms: Smoking Cessation Education, Return to Work Referrals: TIFFANIE HUGO DO [ACTIVE STAFF] - Follow up as needed AARON MADRIGAL DO [ACTIVE STAFF] - Follow up as needed
[2018-08-13 01:00] VITALS: BP 109/71
== END 2018-08-13 01:00 | disposition home or self-care (01) ==
LOC: ER 20:43
DX: M79.644 Pain in right finger(s) (principal); M25.441 Effusion, right hand; R21 Rash and other nonspecific skin eruption; F17.200 Nicotine dependence, unspecified, uncomplicated
CPT/HCPCS: 99283

== ENCOUNTER 2018-08-14 09:44 | Emergency (ER) | payer SELFPAY ==
[2018-08-14] MEDS ORDERED: BUSPIRONE HCL 10 MG TABLET PO ONE (10:28)
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
[2018-08-14 11:10] VITALS: BP 120/76
== END 2018-08-14 11:08 | disposition home or self-care (01) ==
LOC: ER 09:44
DX: F41.9 Anxiety disorder, unspecified (principal); F32.9 Major depressive disorder, single episode, unspecified; F43.9 Reaction to severe stress, unspecified; Z59.0 Homelessness; F17.200 Nicotine dependence, unspecified, uncomplicated
CPT/HCPCS: 99284

== ENCOUNTER 2018-08-20 12:36 | Emergency (ER) | payer SELFPAY ==
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
[2018-08-20 15:20] VITALS: BP 122/66
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
== END 2018-08-20 15:23 | disposition home or self-care (01) ==
LOC: ER 12:36
DX: F41.9 Anxiety disorder, unspecified (principal); G47.00 Insomnia, unspecified; F17.200 Nicotine dependence, unspecified, uncomplicated
CPT/HCPCS: 99284

== ENCOUNTER 2019-09-10 12:15 | Emergency (ER) | payer OTHER ==
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
[2019-09-10 12:42] VITALS: BP 105/71
== END 2019-09-10 12:46 | disposition home or self-care (01) ==
LOC: ER 12:15
DX: S41.012D Laceration without foreign body of left shoulder, subsequent encounter (principal); W45.8XXD Other foreign body or object entering through skin, subsequent encounter; F12.10 Cannabis abuse, uncomplicated; Z87.891 Personal history of nicotine dependence
CPT/HCPCS: 99282

== ENCOUNTER 2019-11-08 17:19 | Emergency (ER) | payer SELFPAY ==
[2019-11-08 17:32] VITALS: BP 116/78
--- NOTE | 2019-11-08 18:25 | ER Document Report ---
HPI - HPI Patient complains to provider of: anxiety Time Seen by Provider: 11/08/19 18:14 Onset: Other - last three days Quality of pain: No pain Pain Level: Denies Context: 23-year-old male with history of anxiety presents emergency department with reports that he has been feeling anxious for the past 3 days. Recently released from [facility]. Reports he has a history of anxiety so does his mother. He reports decreased appetite but denies fever vomiting diarrhea. Denies suicidal or homicidal ideations. Reports he has an appointment at [facility] Sunday for treatment. Is not taking any kind of medications at this time. 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 Family History: Reviewed & Not Pertinent, DM Patient has suicidal ideation: No Patient has homicidal ideation: No Neurological Medical History: Reports: Hx Migraine Renal/ Medical History: Denies: Hx Peritoneal Dialysis GI Medical History: Reports: Hx Gastroesophageal Reflux Disease Musculoskeletal Medical History: Reports Hx Musculoskeletal Trauma - Dislocated left elbow Psychiatric Medical History: Reports: Hx Anxiety Past Surgical History: Reports: Hx Abdominal Surgery - hernia repair 02/2017, Hx Inguinal Hernia - Right, Hx Orthopedic Surgery - Left elbow to repair dislocation - Immunizations Hx Diphtheria, Pertussis, Tetanus Vaccination: No Vertical Provider Document - CONSTITUTIONAL Agree With Documented VS: Yes Exam Limitations: No Limitations General Appearance: WD/WN, No Apparent Distress - INFECTION CONTROL TRAVEL OUTSIDE OF THE [place] IN LAST 30 DAYS: No - HEENT HEENT: Atraumatic, Normocephalic. negative: Conjuctival Injection - NECK Neck: Supple - RESPIRATORY Respiratory: Breath Sounds Normal, No Respiratory Distress - CARDIOVASCULAR Cardiovascular: Regular Rate, Regular Rhythm - GI/ABDOMEN Gastrointestinal: Abdomen Soft, Abdomen Non-Tender - MUSCULOSKELETAL/EXTREMETIES Musculoskeletal/Extremeties: MAEW, FROM - NEURO Level of Consciousness: Awake, Alert, Appropriate Motor/Sensory: No Motor Deficit - DERM Integumentary: Warm, Dry Course - Re-evaluation Re-evalutation: 11/08/19 18:29 Patient presents with complaints of anxiety. He denies suicidal or homicidal ideations. We discussed plan of care. He was offered to stay and talk with our behavioral health personnel in the morning. He declined. He reports he does have an appointment with [facility]. He was instructed on the importance of keeping that appointment and return to our emergency department for worsening symptoms thoughts of suicidal or homicidal ideations. He verbalized understanding to all instructions. - Vital Signs Vital signs: Temp Pulse Resp BP Pulse Ox 98.9 F 106 H 18 116/78 98 11/08/19 17:30 11/08/19 17:30 11/08/19 17:30 11/08/19 17:30 11/08/19 17:30 Discharge - Discharge Clinical Impression: Anxiety Condition: Stable Disposition: HOME, SELF-CARE Instructions: Anxiety ([facility]) Additional Instructions: *You have been evaluated for anxiety *Push fluids *Follow up with [facility] Sunday as scheduled *Return to ED for worsening condition, changes, needs, suicidal or homicidal thoughts, concerns
== END 2019-11-08 18:28 | disposition home or self-care (01) ==
LOC: ER 17:19
DX: F41.9 Anxiety disorder, unspecified (principal); R63.0 Anorexia; F17.210 Nicotine dependence, cigarettes, uncomplicated
CPT/HCPCS: 99283

== ENCOUNTER 2019-11-11 00:40 | Emergency (ER) | payer SELFPAY ==
[2019-11-11 00:54] VITALS: BP 133/95
[2019-11-11] MEDS ORDERED: HYDROXYZINE PAMOATE 50 MG CAPSULE PO ONE (01:06)
--- NOTE | 2019-11-11 01:07 | ER Document Report ---
HPI - HPI Time Seen by Provider: 11/11/19 01:00 Pain Level: 3 Notes: Otherwise healthy 23-year-old male presents emergency department chief complaint of anxiety. Patient reports he was seen here a few days ago, he states he is [facility]. He has not been started on any medications. He has a medication appointment in 3 days. Patient reports he needs something to help him over the next couple of days as he states that he is not able to sleep due to the anxiety. He denies any suicidal homicidal ideations. - CONSTITUTIONAL Constitutional: DENIES: Fever, Chills - EENT EENT: DENIES: Sore Throat, Ear Pain, Eye problems - NEURO Neurology: DENIES: Headache, Weakness, Vision blurred, Dizzinesss / Vertigo - CARDIOVASCULAR Cardiovascular: REPORTS: Chest pain - worrying pain - RESPIRATORY Respiratory: DENIES: Trouble Breathing, Coughing - GASTROINTESTINAL Gastrointestinal: DENIES: Abdominal Pain, Black / Bloody Stools - URINARY Urinary: DENIES: Dysuria, Urgency, Frequency - REPRODUCTIVE Reproductive: DENIES: :, Postmenopausal, Abnormal bleeding / discharge - MUSCULOSKELETAL Musculoskeletal: DENIES: Extremity pain Past Medical History - General Information source: Patient - Social History Smoking Status: Current Every Day Smoker Chew tobacco use (# tins/day): No Frequency of alcohol use: None Drug Abuse: None Family History: Reviewed & Not Pertinent, DM Patient has suicidal ideation: No Patient has homicidal ideation: No Neurological Medical History: Reports: Hx Migraine Renal/ Medical History: Denies: Hx Peritoneal Dialysis GI Medical History: Reports: Hx Gastroesophageal Reflux Disease Musculoskeletal Medical History: Reports Hx Musculoskeletal Trauma - Dislocated left elbow Psychiatric Medical History: Reports: Hx Anxiety, Hx Depression Past Surgical History: Reports: Hx Abdominal Surgery - hernia repair 02/2017, Hx Inguinal Hernia - Right, Hx Orthopedic Surgery - Left elbow to repair dislocation - Immunizations Hx Diphtheria, Pertussis, Tetanus Vaccination: No Vertical Provider Document - CONSTITUTIONAL Notes: PHYSICAL EXAMINATION: GENERAL: Well-appearing, well-nourished and in no acute distress. HEAD: Atraumatic, normocephalic. EYES: Pupils equal round extraocular movements intact, conjunctiva are normal. ENT: Nares patent NECK: Normal range of motion LUNGS: No respiratory distress Musculoskeletal: Normal range of motion NEUROLOGICAL: Normal speech, normal gait. PSYCH: Normal mood, normal affect. SKIN: Warm, Dry, normal turgor, no rashes or lesions noted. - INFECTION CONTROL TRAVEL OUTSIDE OF THE [place] IN LAST 30 DAYS: No Course - Re-evaluation Re-evalutation: Patient appears well, nontoxic, vital signs within normal limits. Patient is calm and cooperative yet somber. Patient reports depression and anxiety for quite some time now, he states he is followed up with the appropriate outpatient resources but he is waiting for his medication appointment which is in 2 days. I will give patient a dose of hydroxyzine here in the emergency department and a prescription for same. Patient is agreeable to this plan. Patient reports he just needs to be able to take something to allow him to get a little sleep as his anxiety is keeping him up at night. Patient denies any suicidal or homicidal ideations. He is stable for discharge home at this time. - Vital Signs Vital signs: Temp Pulse Resp BP Pulse Ox 97.9 F 77 20 133/95 H 97 11/11/19 00:53 11/11/19 00:53 11/11/19 00:53 11/11/19 00:53 11/11/19 00:53 Discharge - Discharge Clinical Impression: Anxiety Condition: Stable Disposition: HOME, SELF-CARE Instructions: Anxiety ([facility]) Additional Instructions: Please take medication as prescribed. Keep the follow-up appointment that you have [facility]. Please return to the emergency department immediately with any new or worsening symptoms or if you feel suicidal or homicidal. Prescriptions: Hydroxyzine Pamoate [Vistaril 25 mg Capsule] 1 - 2 tab PO Q6H #20 capsule
== END 2019-11-11 01:20 | disposition home or self-care (01) ==
LOC: ER 00:40
DX: F41.9 Anxiety disorder, unspecified (principal); F17.200 Nicotine dependence, unspecified, uncomplicated
CPT/HCPCS: 99283

== ENCOUNTER 2019-12-15 19:50 | Emergency (ER) | payer SELFPAY ==
--- NOTE | 2019-12-15 21:51 | EKG REPORT ---
SEVERITY:- ABNORMAL ECG - SINUS TACHYCARDIA BO, CONSIDER BIATRIAL ABNORMALITIES CONSIDER RIGHT VENTRICULAR HYPERTROPHY : Confirmed by: Aileen Guajardo MD 15-Dec-2019 21:50:58
[2019-12-15] MEDS ORDERED: LORAZEPAM 0.5 MG TABLET PO ONE (22:49)
[2019-12-15 22:51] VITALS: BP 129/87
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
[2019-12-15 23:13] LABS: ABSOLUTE BASOPHILS # (AUTO) 0.1 10^3/uL (0.0-0.2); ABSOLUTE EOSINOPHILS # (AUTO) 0.1 10^3/uL (0.0-0.6); ABSOLUTE LYMPHOCYTES (AUTO) 1.8 10^3/uL (0.5-4.7); ABSOLUTE MONOCYTES (AUTO) 0.5 10^3/uL (0.1-1.4); BASOPHILS % (AUTO) 0.9 % (0-2); EOSINOPHILS % (AUTO) 0.6 % (0-6); HEMATOCRIT 42.2 % (37.9-51.0); HEMOGLOBIN 14.9 g/dL (13.5-17.0); LYMPHOCYTES % (AUTO) 21.2 % (13-45); MEAN CORPUSCULAR HEMOGLOBIN 32.4 pg (27.0-33.4); MEAN CORPUSCULAR HGB CONC 35.3 g/dL (32.0-36.0); MEAN CORPUSCULAR VOLUME 92 fl (80-97); MONOCYTES % (AUTO) 5.8 % (3-13); PLATELET COUNT 137 10^3/uL (150-450); RED CELL DISTRIBUTION WIDTH 12.3 % (11.5-14.0); SEGMENTED NEUTROPHILS % (AUTO) 71.5 % (42-78); TOTAL CELLS COUNTED % (AUTO) 100 %; WHITE BLOOD COUNT 8.4 10^3/uL (4.0-10.5)
[2019-12-15 23:33] LABS: ALBUMIN 4.4 g/dL (3.5-5.0); ALKALINE PHOSPHATASE 62 U/L (38-126); ANION GAP 7 (5-19); ASPARTATE AMINO TRANSFERASE 23 U/L (17-59); BILIRUBIN,TOTAL 1.1 mg/dL (0.2-1.3); BLOOD UREA NITROGEN 6 mg/dL (7-20); CALCIUM 9.6 mg/dL (8.4-10.2); CARBON DIOXIDE 24 mmol/L (22-30); CHLORIDE 109 mmol/L (98-107); GLUCOSE 91 mg/dL (75-110); TOTAL PROTEIN 7.3 g/dL (6.3-8.2)
[2019-12-15 23:34] LABS: ACETAMINOPHEN < 10 ug/mL (10-30); ALCOHOL < 10 mg/dL (NONE DETECTED); SALICYLATE < 1.0 mg/dL (2.0-20.0)
[2019-12-16 00:18] LABS: APPEARANCE,URINE CLEAR; BILIRUBIN,URINE NEGATIVE (NEGATIVE); COLOR,URINE YELLOW; GLUCOSE, URINE NEGATIVE (NEGATIVE); KETONES,URINE TRACE mg/dL (NEGATIVE); LEUKOCYTE ESTERASE,URINE TRACE (NEGATIVE); NITRITE,URINE NEGATIVE (NEGATIVE); PROTEIN,URINE NEGATIVE (NEGATIVE); UROBILINOGEN,URINE NEGATIVE mg/dL (<2.0)
[2019-12-16 00:34] LABS: URINE AMPHETAMINES SCREEN NEGATIVE; URINE BARBITURATES SCREEN NEGATIVE; URINE BENZODIAZEPINES SCREEN NEGATIVE; URINE METHADONE SCREEN NEGATIVE; URINE PHENCYCLIDINE SCREEN NEGATIVE
[2019-12-16 00:35] LABS: URINE COCAINE SCREEN UNCONFIRMED POSITIVE; URINE MARIJUANA (THC) SCREEN UNCONFIRMED POSITIVE
== END 2019-12-16 11:55 ==
LOC: EEVIPCON 19:50 → ER 19:50
DX: F41.9 Anxiety disorder, unspecified (principal); F19.10 Other psychoactive substance abuse, uncomplicated; F17.200 Nicotine dependence, unspecified, uncomplicated
CPT/HCPCS: 36415; 80053; 80307; 81001; 85025; 93005; 93010; 99283

== ENCOUNTER 2020-01-22 19:32 | Emergency (ER) | payer SELFPAY ==
--- NOTE | 2020-01-22 21:01 | ER Document Report ---
HPI - HPI Time Seen by Provider: 01/22/20 20:57 Pain Level: Denies Context: 23-year-old male presents for work note to return to work. Patient states he has had a dry cough since Sunday. Patient denies any fever, nausea, vomiting, abdominal pain. Patient states he has a [id number] at home who is also sick with similar symptoms. Patient denies any recent contact with anyone that is traveled overseas or traveling overseas. - CONSTITUTIONAL Constitutional: DENIES: Fever, Chills - REPRODUCTIVE Reproductive: DENIES: : Past Medical History - Social History Smoking Status: Current Every Day Smoker Family History: Reviewed & Not Pertinent, DM Patient has suicidal ideation: No Patient has homicidal ideation: No Neurological Medical History: Reports: Hx Migraine Renal/ Medical History: Denies: Hx Peritoneal Dialysis GI Medical History: Reports: Hx Gastroesophageal Reflux Disease Musculoskeletal Medical History: Reports Hx Musculoskeletal Trauma - Dislocated left elbow Psychiatric Medical History: Reports: Hx Anxiety, Hx Depression Past Surgical History: Reports: Hx Abdominal Surgery - hernia repair 02/2017, Hx Inguinal Hernia - Right, Hx Orthopedic Surgery - Left elbow to repair dislocation - Immunizations Hx Diphtheria, Pertussis, Tetanus Vaccination: No Vertical Provider Document - CONSTITUTIONAL Agree With Documented VS: Yes Notes: GENERAL: Well-appearing, well-nourished and in no acute distress. HEAD: Atraumatic, normocephalic. EYES: Extraocular movements intact, sclera anicteric, conjunctiva are normal. NECK: Normal range of motion, supple without lymphadenopathy or JVD. LUNGS: Breath sounds clear to auscultation bilaterally and equal. No wheezes rales or rhonchi. HEART: Regular rate and rhythm without murmurs, rubs or gallops. EXTREMITIES: Normal range of motion, no pitting or edema. No clubbing or cyanosis. NEUROLOGICAL: Cranial nerves II through XII grossly intact. Normal speech, normal gait. PSYCH: Normal mood, normal affect. SKIN: Warm, Dry, normal turgor, no rashes or lesions noted. - INFECTION CONTROL TRAVEL OUTSIDE OF THE [place] IN LAST 30 DAYS: No Course - Re-evaluation Re-evalutation: 01/22/20 23-year-old male presents with cough/congestion that he attributes to his allergies or sick contact at home. Patient was sent over by his employer for medical clearance. Lungs clear to auscultation bilaterally. Regular rate and rhythm. Patient is afebrile. PE is otherwise unremarkable. Patient given Tessalon Perles for cough and referrals to clinics to establish a primary care doctor. Return precautions given. Patient voices understanding and agrees with plan of care. - Vital Signs Vital signs: Temp Pulse Resp BP Pulse Ox 99.4 F 91 20 121/77 98 01/22/20 19:41 01/22/20 19:41 01/22/20 19:41 01/22/20 19:41 01/22/20 19:41 Discharge - Discharge Clinical Impression: Viral URI with cough Condition: Stable Disposition: HOME, SELF-CARE Instructions: Upper Respiratory Illness ([facility]) Additional Instructions: Please take medications as prescribed. Please follow-up with your primary care doctor 1 of the clinics listed in 3 to 5 days. Return immediately to ER if you start having any worsening symptoms, including coughing up blood, shortness of breath, chest pain, nausea/vomiting, fever, abdominal pain, or any other symptoms that are concerning to you. Prescriptions: Benzonatate [Tessalon Perles 100 mg Capsule] 100 mg PO Q8HP PRN #40 capsule PRN Reason: Forms: Return to Work Referrals: CONNIE VARELA MD [ACTIVE STAFF] - Follow up in 3-5 days [facility] [Provider Group] - Follow up in 3-5 days
[2020-01-22 21:10] VITALS: BP 128/84
== END 2020-01-22 21:09 | disposition home or self-care (01) ==
LOC: ER 19:32
DX: J06.9 Acute upper respiratory infection, unspecified (principal); B97.89 Other viral agents as the cause of diseases classified elsewhere; R05 Cough; F17.200 Nicotine dependence, unspecified, uncomplicated
CPT/HCPCS: 99282

== ENCOUNTER 2020-01-27 23:54 | Emergency (ER) | payer SELFPAY ==
[2020-01-28 00:24] VITALS: BP 134/97
[2020-01-28] MEDS ORDERED: HYDROXYZINE PAMOATE 25 MG CAPSULE PO ONE (00:32)
--- NOTE | 2020-01-28 00:33 | ER Document Report ---
ED Medical Screen (RME) - General Chief Complaint: Anxiety Stated Complaint: ANXIETY Time Seen by Provider: 01/28/20 00:27 Mode of Arrival: Ambulatory Information source: Patient Notes: 23-year-old male with history of anxiety depression presents emergency department with complaints of anxiety. Reports he has not slept since yesterday afternoon. Reports he has butterflies in his stomach. Reports he recently had a disagreement with his baby mamma and is not able to see his kids. Denies suicidal homicidal ideations. He reports [facility] but call there today and they are closed until February 08. I have greeted and performed a rapid initial assessment of this patient. A comprehensive ED assessment and evaluation of the patient, analysis of test results and completion of the medical decision making process will be conducted by additional ED providers. TRAVEL OUTSIDE OF THE [place] IN LAST 30 DAYS: No - Related Data Allergies/Adverse Reactions: No Known Allergies Allergy (Verified 11/11/19 01:04) Home Medications: ambien Past Medical History Neurological Medical History: Reports: Hx Migraine Renal/ Medical History: Denies: Hx Peritoneal Dialysis GI Medical History: Reports: Hx Gastroesophageal Reflux Disease Musculoskeltal Medical History: Reports Hx Musculoskeletal Trauma - Dislocated left elbow Psychiatric Medical History: Reports: Hx Anxiety, Hx Depression Past Surgical History: Reports: Hx Abdominal Surgery - hernia repair 02/2017, Hx Inguinal Hernia - Right, Hx Orthopedic Surgery - Left elbow to repair dislocation - Immunizations Hx Diphtheria, Pertussis, Tetanus Vaccination: No Physical Exam - Vital signs Vitals: Temp Pulse Resp BP Pulse Ox 98.5 F 106 H 18 134/97 H 97 01/28/20 00:23 01/28/20 00:23 01/28/20 00:23 01/28/20 00:23 01/28/20 00:23 Course - Vital Signs Vital signs: Temp Pulse Resp BP Pulse Ox 98.5 F 106 H 18 134/97 H 97 01/28/20 00:01/28/20 00:01/28/20 00:23 01/28/20 00:23 01/28/20 00:23
--- NOTE | 2020-01-28 03:02 | ER Document Report ---
HPI - HPI Time Seen by Provider: 01/28/20 00:27 Pain Level: Denies Notes: Patient is a 23-year-old male with a history of chronic issues with anxiety and drug use presents complaining of feeling anxious over the past 1 to 2 days and having trouble sleeping last night. Patient states that he felt he had butterflies in his stomach. Patient states that he does have stressors at home and was supposed to see his mental health provider yesterday, but their office is closed until the . He is otherwise able to eat and drink without difficulty. He is urinating normally and having normal bowel movements. Denies drug allergies. He has no SI or HI. No visual or auditory hallucinations. Denies any headache, fever, changes in vision/speech/mentation/hearing, URI, sore throat, chest pain, palpitations, syncope, cough, shortness of breath, wheeze, dyspnea, abdominal pain, nausea/vomiting/diarrhea, urinary retention, dysuria, hematuria, or rash. - ROS Systems Reviewed and Negative: Yes All other systems reviewed and negative - REPRODUCTIVE Reproductive: DENIES: : Past Medical History - General Information source: Patient - Social History Smoking Status: Never Smoker Family History: Reviewed & Not Pertinent, DM Patient has suicidal ideation: No Patient has homicidal ideation: No Neurological Medical History: Reports: Hx Migraine Renal/ Medical History: Denies: Hx Peritoneal Dialysis GI Medical History: Reports: Hx Gastroesophageal Reflux Disease Musculoskeletal Medical History: Reports Hx Musculoskeletal Trauma - Dislocated left elbow Psychiatric Medical History: Reports: Hx Anxiety, Hx Depression Past Surgical History: Reports: Hx Abdominal Surgery - hernia repair 02/2017, Hx Inguinal Hernia - Right, Hx Orthopedic Surgery - Left elbow to repair dislocation - Immunizations Hx Diphtheria, Pertussis, Tetanus Vaccination: No Vertical Provider Document - CONSTITUTIONAL Agree With Documented VS: Yes Notes: PHYSICAL EXAMINATION: GENERAL: Well-appearing, well-nourished and in no acute distress. HEAD: Atraumatic, normocephalic. EYES: Pupils equal round and reactive to light, extraocular movements intact, sclera anicteric, conjunctiva are normal. ENT: Nares patent and without discharge. oropharynx clear without exudates. No tonsilar hypertrophy or erythema. Moist mucous membranes. NECK: Normal range of motion, supple without lymphadenopathy LUNGS: Breath sounds clear to auscultation bilaterally and equal. No wheezes rales or rhonchi. HEART: Regular rate and rhythm without murmurs, rubs, gallops. ABDOMEN: Soft, nontender, nondistended abdomen. No guarding, no rebound. Normal bowel sounds present. No CVA tenderness bilaterally. Musculoskeletal: FROM to passive/active. Strength 5+/5. Extremities: No cyanosis, clubbing, or edema b/l. Peripheral pulses 2+. Capillary refill less than 3 seconds. NEUROLOGICAL: Cranial nerves grossly intact. Normal speech, normal gait. PSYCH: Normal mood, normal affect. SKIN: Warm, Dry, normal turgor, no rashes or lesions noted. - INFECTION CONTROL TRAVEL OUTSIDE OF THE [place] IN LAST 30 DAYS: No Course - Re-evaluation Re-evalutation: 01/28/20 03:04 Patient is an afebrile, well-hydrated, 23-year-old male who presents with anxiety. Vitals are acceptable without significant tachycardia, tachypnea, hypoxia. PE is otherwise unremarkable. Patient is nontoxic-appearing is tolerating p.o. without difficulty. He has no SI or HI. He does not meet IVC criteria otherwise. Patient was given hydroxyzine in triage which has resolved the symptoms and is feeling much better. No further work-up warranted at this time. Low suspicion for any systemic or emergent condition at this time. Patient does have a home provider that he follows with regularly. Recheck with PCM this week. Return to the ED with any other worsening/concerning symptoms. Patient is in agreement. - Vital Signs Vital signs: Temp Pulse Resp BP Pulse Ox 98.5 F 106 H 18 134/97 H 97 01/28/20 00:23 01/28/20 00:23 01/28/20 00:23 01/28/20 00:23 01/28/20 00:23 Discharge - Discharge Clinical Impression: Anxiety Condition: Stable Disposition: HOME, SELF-CARE Instructions: Anxiety ([facility]) Additional Instructions: Maintain adequate fluid and food intake healthy diet meditation may help routine exercise avoid drugs Monitor symptoms for any acute changes Recheck with your PCM in 3-5 days Keep appointments with [facility] Return to the ED with any worsening symptoms and/or development of fever, headache, chest pain, palpitations, syncope, shortness of breath, trouble breathing, abdominal pain, n/v/d, blood in stool/urine, loss of control of bowel/bladder, urinary retention, muscle weakness/paralysis, numbness/tingling, or other worsening symptoms that are concerning to you. Prescriptions: Hydroxyzine Pamoate [Vistaril 25 mg Capsule] 25 mg PO TID PRN #15 capsule PRN Reason: Forms: Elevated Blood Pressure, Return to Work Referrals: [facility] [Provider Group] - Follow up as needed
== END 2020-01-28 03:08 | disposition home or self-care (01) ==
LOC: ER 23:54
DX: F41.9 Anxiety disorder, unspecified (principal); F32.9 Major depressive disorder, single episode, unspecified
CPT/HCPCS: 99283

== ENCOUNTER 2020-08-26 23:54 | Emergency (ER) | payer SELFPAY ==
[2020-08-27] MEDS ORDERED: LIDOCAINE 5% (700 MG) TRANSDERMAL ADH..PATCH TP ONE (00:53)
[2020-08-27] MEDS ORDERED: KETOROLAC TROMETHAMINE 60 MG/2 ML SDV IM ONE (00:53)
[2020-08-27] MEDS ORDERED: CYCLOBENZAPRINE HCL 10 MG TABLET PO ONE (00:54)
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
[2020-08-27 01:25] VITALS: BP 119/88
== END 2020-08-27 01:24 | disposition home or self-care (01) ==
LOC: ER 23:54
DX: S39.012A Strain of muscle, fascia and tendon of lower back, initial encounter (principal); F17.200 Nicotine dependence, unspecified, uncomplicated; X50.9XXA Other and unspecified overexertion or strenuous movements or postures, initial encounter
CPT/HCPCS: 99284; 96372; J1885

== ENCOUNTER 2020-11-16 13:30 | Emergency (ER) | payer SELFPAY ==
[2020-11-16 13:49] VITALS: BP 139/98
[2020-11-16] MEDS ORDERED: NORMAL SALINE 1000 ML 1,000 ML IV ONE (14:47)
--- NOTE | 2020-11-16 14:51 | ER Document Report ---
ED Cardiac - General Chief Complaint: Chest Pain Stated Complaint: PALPITATIONS Time Seen by Provider: 11/16/20 14:40 Mode of Arrival: Ambulatory Information source: Patient TRAVEL OUTSIDE OF THE [place] IN LAST 30 DAYS: No - HPI Patient complains to provider of: Palpitations Notes: Patient here with complaints of waking up this morning and feeling like his heart was beating hard. He states that he went to [employer] to get some food and then was shaking. States that he ate lunch seem to feel somewhat better. Right now he states that he still feels like his heart is beating hard but denies that its beating faster out of rhythm. He denies any chest pain or shortness of breath with any of this. He denies fever. No cough. He denies abdominal pain. He denies nausea, vomiting, diarrhea. The patient is a smoker. He denies drug or alcohol use. In reviewing his prior records, he has had cocaine in his system in the past. He does have a history of anxiety as well as panic attacks. He denies any homicidal or suicidal ideation. He denies any unilateral numbness, tingling, weakness. No severe headache. No blurred or lost vision. Nothing seems to make symptoms better or worse. No other complaints at this time. - Related Data Allergies/Adverse Reactions: No Known Allergies Allergy (Verified 08/27/20 00:39) Past Medical History - Social History Smoking Status: Current Every Day Smoker Chew tobacco use (# tins/day): No Frequency of alcohol use: Social Drug Abuse: None Family History: Reviewed & Not Pertinent, DM Neurological Medical History: Reports: Hx Migraine Renal/ Medical History: Denies: Hx Peritoneal Dialysis GI Medical History: Reports: Hx Gastroesophageal Reflux Disease Musculoskeletal Medical History: Reports Hx Musculoskeletal Trauma - Dislocated left elbow Psychiatric Medical History: Reports: Hx Anxiety, Hx Depression Past Surgical History: Reports: Hx Abdominal Surgery - hernia repair 02/2017, Hx Inguinal Hernia - Right, Hx Orthopedic Surgery - Left elbow to repair dislocation - Immunizations Hx Diphtheria, Pertussis, Tetanus Vaccination: No Review of Systems - Review of Systems -: Yes All other systems reviewed and negative Physical Exam - Vital signs Vitals: Temp Pulse Resp BP Pulse Ox 97.8 F 105 H 21 H 139/98 H 100 11/16/20 13:37 11/16/20 13:37 11/16/20 13:37 11/16/20 13:37 11/16/20 13:37 - Notes Notes: GENERAL: alert, cooperative, nontoxic, no distress. HEAD: normocephalic, atraumatic EYES: conjunctiva pink without discharge, no external redness or swelling. EARS: no external swelling, no external redness NOSE: atraumatic, no external swelling MOUTH/THROAT: mucous membranes moist and pink NECK: soft, supple, full range of motion, no meningismus. CHEST: no distress, lungs clear and equal throughout. No wheezing, rales, rhonchi. CARDIAC: regular rhythm, mild tachycardia, no murmur EXTREMITIES: full range of motion of all extremities. No redness, no swelling. NEURO: alert and oriented 3, no focal deficits, full range of motion of all extremities. PYSCH: appropriate mood, affect. Patient is cooperative. SKIN: pink, warm, dry, no rash. Course - Re-evaluation Re-evalutation: 11/16/20 19:23 Fortunately the patient seems to have eloped the department without his records. EKG showed a sinus tachycardia. Patient is noted to have a low TSH concerning for possible hyperthyroidism. T4 was normal. - Vital Signs Vital signs: Temp Pulse Resp BP Pulse Ox 97.8 F 105 H 21 H 139/98 H 100 11/16/20 13:37 11/16/20 13:37 11/16/20 13:37 11/16/20 13:37 11/16/20 13:37 - Laboratory Results Result Diagrams: 11/16/20 15:40 11/16/20 15:40 Laboratory Results Interpreted: 11/16/20 11/16/20 15:40 15:40 Chloride 110 H TSH 0.30 L Critical Laboratory Results Reviewed: No Critical Results - Radiology Results Critical Radiology Results Reviewed: No Critical Results - EKG Interpretation by Vt EKG shows normal: Sinus rhythm Rate: Tachycardia Rhythm: NSR Additional EKG results interpreted by dc: 11/16/20 16:28 Sinus tachycardia with a ventricular rate of 105. NC interval 104, QRS duration 80, QT interval 324. No ST elevation or depression, no STEMI. Discharge - Discharge Clinical Impression: Tachycardia, Hyperthyroidism Condition: Stable Disposition: ELOPED
--- NOTE | 2020-11-16 15:21 | RADIOLOGY REPORT (SQ) ---
EXAM DESCRIPTION: CHEST 2 VIEWS IMAGES COMPLETED DATE/TIME: 11/16/2020 3:13 pm REASON FOR STUDY: palpitations COMPARISON: None. EXAM PARAMETERS: NUMBER OF VIEWS: two views TECHNIQUE: Digital Frontal and Lateral radiographic views of the chest acquired. RADIATION DOSE: NA LIMITATIONS: none FINDINGS: LUNGS AND PLEURA: No opacities, masses or pneumothorax. No pleural effusion. MEDIASTINUM AND HILAR STRUCTURES: No masses or contour abnormalities. HEART AND VASCULAR STRUCTURES: Heart normal size. No evidence for failure. BONES: No acute findings. HARDWARE: None in the chest. OTHER: No other significant finding. IMPRESSION: NO ACUTE RADIOGRAPHIC FINDING IN THE CHEST. TECHNICAL DOCUMENTATION: JOB ID: [id number] 2010 [employer]- All Rights Reserved Reading location - IP/workstation name: [email or web address]
[2020-11-16 15:55] LABS: ABSOLUTE EOSINOPHILS # (AUTO) 0.1 10^3/uL (0.0-0.6); ABSOLUTE LYMPHOCYTES (AUTO) 1.1 10^3/uL (0.5-4.7); ABSOLUTE MONOCYTES (AUTO) 0.4 10^3/uL (0.1-1.4); ABSOLUTE NEUT (AUTO) 5.1 10^3/uL (1.7-8.2); BASOPHILS % (AUTO) 0.6 % (0-2); HEMOGLOBIN 14.5 g/dL (13.5-17.0); LYMPHOCYTES % (AUTO) 16.8 % (13-45); MEAN CORPUSCULAR HEMOGLOBIN 33.1 pg (27.0-33.4); MEAN CORPUSCULAR HGB CONC 35.5 g/dL (32.0-36.0); MEAN CORPUSCULAR VOLUME 93 fl (80-97); MONOCYTES % (AUTO) 6.4 % (3-13); PLATELET COUNT 163 10^3/uL (150-450); RED CELL DISTRIBUTION WIDTH 12.4 % (11.5-14.0); SEGMENTED NEUTROPHILS % (AUTO) 75.2 % (42-78); TOTAL CELLS COUNTED % (AUTO) 100 %; WHITE BLOOD COUNT 6.7 10^3/uL (4.0-10.5)
[2020-11-16 16:17] LABS: ALBUMIN 4.4 g/dL (3.5-5.0); ALKALINE PHOSPHATASE 65 U/L (38-126); ANION GAP 7 (5-19); ASPARTATE AMINO TRANSFERASE 33 U/L (17-59); BILIRUBIN,DIRECT 0.3 mg/dL (0.0-0.4); BILIRUBIN,TOTAL 0.9 mg/dL (0.2-1.3); BLOOD UREA NITROGEN 15 mg/dL (7-20); CALCIUM 9.5 mg/dL (8.4-10.2); CARBON DIOXIDE 26 mmol/L (22-30); CHLORIDE 110 mmol/L (98-107); GLUCOSE 92 mg/dL (75-110); POTASSIUM 4.3 mmol/L (3.6-5.0); TOTAL PROTEIN 7.6 g/dL (6.3-8.2)
[2020-11-16 16:40] LABS: FREE T4 (FREE THYROXINE) 0.99 ng/dL (0.78-2.19)
[2020-11-16 16:53] LABS: THYROID STIMULATING HORMONE 0.3 uIU/mL (0.47-4.68)
--- NOTE | 2020-11-17 00:41 | EKG REPORT ---
SEVERITY:- OTHERWISE NORMAL ECG - SINUS TACHYCARDIA : Confirmed by: Isaias Marino 17-Nov-2020 00:40:40
== END 2020-11-16 19:00 | disposition left against medical advice (07) ==
LOC: ER 13:30
DX: R07.9 Chest pain, unspecified (principal); R00.2 Palpitations; F17.200 Nicotine dependence, unspecified, uncomplicated
CPT/HCPCS: 36415; 71046; 80053; 83735; 84439; 84443; 85025; 93005; 93010; 99285

== ENCOUNTER 2020-12-02 00:12 | Emergency (ER) | payer SELFPAY ==
[2020-12-02] MEDS ORDERED: FENTANYL CITRATE INJ/PF 100 MCG/2 ML AMPUL IM ONE (00:13)
[2020-12-02] MEDS ORDERED: DIPH/PERTUSS(ACELL)/TETANUS VAC/PF 0.5 ML SYR (>=10YO) IM ONE (00:23)
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
[2020-12-02] MEDS ORDERED: FENTANYL CITRATE INJ/PF 100 MCG/2 ML AMPUL IV ONE (00:28)
[2020-12-02] MEDS ORDERED: KETOROLAC TROMETHAMINE INJ/PF 30 MG/1 ML SDV IV ONE (00:46)
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
[2020-12-02] MEDS ORDERED: BACITRACIN ZINC OINTMENT 15 GM TP ONE (01:08)
--- OUTSIDE RECORDS SUMMARY | 2020-12-02 01:23 | XMS REPORT ---
:05/01/1996 Author Organization [facility] Address [facility] [place] [address] [place] [id number] Care Team Providers Name Role Phone Unavailable Unavailable Unavailable Allergies, Adverse Reactions, Alerts This patient has no known allergies or adverse reactions. Medications Ordered Filled Start Stop Current Ordering Indication Dosage Frequency Signature Comments Components Medication Medication Date Date Medication? Clinician (SIG) Name Name Famotidine 2018- No Ayush 20 Twice A (Pepcid) 20 12-04 Aishwarya Webber Day Mg Tab, 20 00:00: 00:00 Mg Oral 00 :00 Metoclopram 2018- No Ayush 10 Every 6 kyaw Hcl 12-04 Aishwarya Webber Hours for (Reglan) 10 00:00: 00:00 Nausea & Mg Tab, 10 00 :00 Vomiting Mg Oral Tramadol 2017- No Ayush 50 Every 6 Hcl 12-04 Aishwarya Webber Hours for (Ultram) 50 00:00: 00:00 Pain Mg Tablet, 00 :00 50 Mg Oral Problems Condition Condition Condition Status Onset Resolution Last Treatin g Comments Name Details Category Date Date Treatment Clinician Date Involuntary Involuntary Problem Resolve commitment commitment d 01-17 23:50: 00 Suicidal Suicidal Problem Resolve ideation ideation d 01-17 23:07: 00 Suicide Suicide Problem Resolve attempt by gesture d 01-17 inadequate 23:07: means 00 Heat Heat Problem Resolve exhaustion exhaustion d 06-21 18:34: 00 Pre-syncope Near Problem Resolve syncope d 06-21 18:34: 00 Procedures Procedure Date / Time Performed Performing Clinician Marlon diamond Computed tomography of brain 2016-06-21 00:00:00 KIEL ZHANG without radiopaque contrast EKG (electrocardiogram) 2016-06-21 00:00:00 KIEL ZHANG Portable x-ray of chest, AP view 2016-06-21 00:00:00 KIEL ZHANG Results Test Description Test Time Test Comments Text Results Atomic Results Result Comments Random Glucose 2018-01-17 23:39:00 Test Item Value Reference Range Comments Serum or plasma glucose measurement (mass/volume) (test code = 2 345-7) 74 74-99 Blood Urea Bjnpjzkp4371-57-11 23:39:00 Test Item Value Reference Range Comments Serum or plasma urea nitrogen measurement 15 7-18 (mass/volume) (test code = 3094-0) Iucbrierqr3157-60-64 23:39:00 Test Item Value Reference Range Comments Serum or plasma creatinine measurement (mass/volume) 1.10 0.60-1.30 (test code = 2160-0) BUN/Creatinine Fqrmu4727-19-89 23:39:00 Test Item Value Reference Range Comments Blood urea nitrogen/creatinine mass ratio (test code = 13.6 08-31 53228-3) Estimated GFR (Non- Zvrcwzxv1013-31-66 23:39:00 Test Item Value Reference Range Comments Estimated glomerular filtration rate (GFR) non- > 60 >60 Palestinian (test code = 90839-9) Reference Range: > or = 60 Units: mL/min/1.73 m2 Original MDRD Study Group Equation UsedEstimated GFR ()2018-01-17 23:39:00 Test Item Value Reference Range Comments Estimated glomerular filtration rate (GFR) > 60 >60 Palestinian (test code = 05656-5) Reference Range: > or = 60 Units: mL/min/1.73 m2 Original MDRD Study Group Equation UsedSodium Sdnel4571-79-74 23:39:00 Test Item Value Reference Range Comments Serum or plasma sodium measurement (mass or 141 136- 145 moles/volume) (test code = 2951-2) Potassium Klfmg8838-59-90 23:39:00 Test Item Value Reference Range Comments Serum or plasma potassium measurement (moles/volume) 3.9 3.5-5.1 (test code = 2823-3) Chloride Liyll0403-92-70 23:39:00 Test Item Value Reference Range Comments Serum or plasma chloride measurement (moles/volume) 106 98-107 (test code = 2075-0) Carbon Dioxide Rhxpc5354-36-65 23:39:00 Test Item Value Reference Range Comments Serum or plasma total carbon dioxide measurement 23 21-32 (moles/volume) (test code = 2028-9) Anion Abp6125-89-66 23:39:00 Test Item Value Reference Range Comments Serum or plasma anion gap (test code = 00282-0) 12.0 4-16 Calculated Wlubrfsvgm7998-07-12 23:39:00 Test Item Value Reference Range Comments Osmolality of Serum or Plasma by calculation (test 280 280-300 code = 44819-5) Calcium Dppth5118-87-95 23:39:00 Test Item Value Reference Range Comments Serum or plasma calcium measurement (mass/volume) 9.7 8.5-10.1 (test code = 60591-0) Total Mbtlxae0721-49-28 23:39:00 Test Item Value Reference Range Comments Serum or plasma protein measurement (mass/volume) 8.4 6.4-8.2 (test code = 2885-2) Vnqmrmd2452-80-31 23:39:00 Test Item Value Reference Range Comments Serum or plasma albumin measurement (mass/volume) 4.9 3.5-5.0 (test code = 1751-7) Total Dyyrvlzxz1990-04-54 23:39:00 Test Item Value Reference Range Comments Serum or plasma total bilirubin measurement 1.9 0.2- 1.0 (mass/volume) (test code = 1975-2) Aspartate Amino Transf (AST/SGOT)2018-01-17 23:39:00 Test Item Value Reference Range Comments Serum or plasma aspartate aminotransferase measurement 40 15-37 (enzymatic activity/volume) (test code = 1920-8) Alanine Aminotransferase (ALT/SGPT)2018-01-17 23:39:00 Test Item Value Reference Range Comments Serum or plasma alanine aminotransferase measurement 27 13-61 (enzymatic activity/volume) (test code = 1742-6) Alkaline Rznixglusvy8420-93-33 23:39:00 Test Item Value Reference Range Comments Serum or plasma alkaline phosphatase measurement 68 50-136 (enzymatic activity/volume) (test code = 6768-6) Acetaminophen Tzepi6338-52-30 23:39:00 Test Item Value Reference Range Comments Acetaminophen level (mass/volume) (test code = 1 0.0-30.0 02841-8) Urine Amphetamines Wmqicq1637-15-57 23:39:00 Test Item Value Reference Range Comments Urine amphetamine screening test (test code = Positive Ne gative 39438-6) Urine MDMA Screen (Ecstasy)2018-01-17 23:39:00 Test Item Value Reference Range Comments Screening urine methylenedioxymethamphetamine Positive NE GATIVE (MDMA) detection (test code = 86501-4) Urine Barbiturates Zcmcad8408-20-78 23:39:00 Test Item Value Reference Range Comments Urine barbiturates screen (test code = 582779130) Negative Negative Urine Benzodiazepines Gcxngt5993-23-07 23:39:00 Test Item Value Reference Range Comments Urine benzodiazepines detection by screening method Positive Negative (test code = 45502-2) Urine Cocaine Vaxadj9610-61-31 23:39:00 Test Item Value Reference Range Comments Screening urine benzoylecgonine detection >150 Positive N egative ng/ml (test code = 80437-0) Urine Methadone, Bdpbfdbemcg0369-71-25 23:39:00 Test Item Value Reference Range Comments Urine methadone screen (test code = 11477-8) Negative Neg ative Urine Opiates Cdxpnk8439-76-11 23:39:00 Test Item Value Reference Range Comments Urine opiates screening test (test code = 08881-1) Negative Negative Urine Phencyclidine Sakfbx0097-68-03 23:39:00 Test Item Value Reference Range Comments Urine phencyclidine detection by screening method Negative Negative (test code = 35777-4) Urine Marijuana (THC) Lrfhoc8177-89-56 23:39:00 Test Item Value Reference Range Comments Urine cannabinoids detection by screening method Positive Negative (test code = 57980-6) Drug Screen Xucjgtq9117-23-33 23:39:00 Test Item Value Reference Range Comments Urine drug screen comment interpretation (test SEE BELOW code = 88698-4) NOTE for POSITIVES: These are preliminary results for medical decision making only. The physician should client solutions director whether or not confirmatory testing is clinically indicated.Urine Tricyclic Nvrjujewdjtxzbx8291-13-17 23:27:00 Test Item Value Reference Range Comments Qualitative urine tricyclic antidepressant Negative Negat juan measurement (test code = 93282-2) Salicylates Ddoqq9848-98-20 23:26:00 Test Item Value Reference Range Comments Serum or plasma salicylates measurement (mass/volume) 2.8-20.0 (test code = 4024-6) Yjfxjpphxk1108-55-62 23:01:00 Test Item Value Reference Range Comments Blood hemoglobin measurement (mass/volume) (test code 16.0 14.0-18.0 = 718-7) Qryutdhiqk7438-78-11 23:01:00 Test Item Value Reference Range Comments Blood hematocrit (volume fraction) (test code = 45.6 42.0-52.0 98923-8) Mean Corpuscular Uexnag5053-78-05 23:01:00 Test Item Value Reference Range Comments Automated erythrocyte mean corpuscular volume (test 92.0 80.0-96.0 code = 787-2) Mean Corpuscular Mrcvsodcme6220-46-90 23:01:00 Test Item Value Reference Range Comments MCH (test code = 44134-2) 32.3 27.0-32.0 Mean Corpuscular Hemoglobin Ylyfcbu4147-37-89 23:01:00 Test Item Value Reference Range Comments Erythrocyte mean corpuscular hemoglobin concentration 35.1 33.0-36.0 measurement (mass/volume) (test code = 29481-4) Red Cell Distribution Qpdqw2236-96-59 23:01:00 Test Item Value Reference Range Comments Erythrocyte distribution width ratio (test code = 12.1 10.0-14.5 20045-2) Platelet Wulpd7799-36-10 23:01:00 Test Item Value Reference Range Comments Blood platelets count (number/volume) (test code = 168 130400 00573-6) Neutrophils (%) (Auto)2018-01-17 23:01:00 Test Item Value Reference Range Comments Neutrophils seg % bld (test code = 21166-9) 68.2 42.0 -75.0 Lymphocytes (%) (Auto)2018-01-17 23:01:00 Test Item Value Reference Range Comments Automated lymphocyte count as percentage of total 26.1 20.0-51.0 leukocytes (test code = 81344-5) Monocytes (%) (Auto)2018-01-17 23:01:00 Test Item Value Reference Range Comments Pierce % (test code = 5905-5) 4.5 3.5-12.0 Eosinophils (%) (Auto)2018-01-17 23:01:00 Test Item Value Reference Range Comments Eos % (test code = 713-8) 1.0 0.0-2.0 Basophils (%) (Auto)2018-01-17 23:01:00 Test Item Value Reference Range Comments Baso % (test code = 706-2) 0.3 0.0-1.0 Neutrophils # (Auto)2018-01-17 23:01:00 Test Item Value Reference Range Comments Absolute neutrophil count (test code = 751-8) 5.0 1. 4-6.5 Lymphocytes # (Auto)2018-01-17 23:01:00 Test Item Value Reference Range Comments Absolute lymphocyte count (test code = 42671-6) 1.9 1.2-3.4 Monocytes # (Auto)2018-01-17 23:01:00 Test Item Value Reference Range Comments Absolute monocyte count (test code = 742-7) 0.3 0.1- 0.6 Eosinophils # (Auto)2018-01-17 23:01:00 Test Item Value Reference Range Comments Blood eosinophils count (number/volume) (test code = 0.1 0.0-0.5 85744-4) Basophils # (Auto)2018-01-17 23:01:00 Test Item Value Reference Range Comments Blood basophils count (number/volume) (test code = 0.0 0.0-0.1 84938-3) White Blood Roubt8917-24-02 23:01:00 Test Item Value Reference Range Comments Blood automated leukocyte count (test code = 6690-2) 7.3 4.8-10.8 Red Blood Pzqpj2434-99-80 23:01:00 Test Item Value Reference Range Comments Blood erythrocytes count (number/volume) (test code = 4.96 4.6-6.1 85568-0) Urine Collection Uhld3906-00-84 22:54:00 Test Item Value Reference Range Comments UA (urinalysis) (test code = 39674-1) URN,CC Urine Jpdnh0969-41-83 22:54:00 Test Item Value Reference Range Comments Urine color determination (test code = 5778-6) YELLOW Y ELLOW Urine Rcjsmsjnqc4305-24-46 22:54:00 Test Item Value Reference Range Comments Urine appearance determination (test code = 5767-9) CLEAR CLEAR Urine Glucose (UA)2018-01-17 22:54:00 Test Item Value Reference Range Comments Urine glucose detection by test strip (test code = NEGATIVE NEGATIVE 39041-6) Urine Lmhpiptiq8436-94-97 22:54:00 Test Item Value Reference Range Comments Urine total bilirubin detection by test strip (test SMALL NEGATIVE code = 5770-3) Urine Ieibmhl9492-73-50 22:54:00 Test Item Value Reference Range Comments Urine ketones detection by test strip (test code = 80 NEGATIVE 2514-8) Urine Specific Nsdectu2485-27-04 22:54:00 Test Item Value Reference Range Comments Specific gravity of Urine by Refractometry automated 1.020 1.010-1.025 (test code = 31698-6) Urine Occult Xyfqt9468-34-54 22:54:00 Test Item Value Reference Range Comments Urine erythrocytes detection (test code = 99011-4) TRACE NEG, TRACE Urine wT8206-58-20 22:54:00 Test Item Value Reference Range Comments Urine pH measurement (test code = 2756-5) 5.5 5.0-7. 5 Urine Dbknnpo6485-94-52 22:54:00 Test Item Value Reference Range Comments Urine protein detection by test strip (test code = TRACE NEG, TRACE 79006-4) Urine Zseuhywjrymy7330-70-09 22:54:00 Test Item Value Reference Range Comments Urine urobilinogen measurement (test code = 19091-3) 1.0 >0.2 Urine Oqsekqp7921-95-86 22:54:00 Test Item Value Reference Range Comments Urine nitrite detection (test code = 70508-0) NEGATIVE NE GATIVE Urine Leukocyte Tvptglmp6936-95-13 22:54:00 Test Item Value Reference Range Comments Leukocyte esterase ur dipstick (test code = 5799-2) NEGATIVE NEG, TRACE Urine Collection Nrws4809-04-85 12:59:00 Test Item Value Reference Range Comments UA (urinalysis) (test code = 93301-0) URN,CC Urine Lophu1699-86-87 12:59:00 Test Item Value Reference Range Comments Urine color determination (test code = 5778-6) YELLOW Y ELLOW Urine Jzdrhcksmk5657-86-41 12:59:00 Test Item Value Reference Range Comments Urine appearance determination (test code = 5767-9) CLEAR CLEAR Urine Glucose (UA)2017-12-04 12:59:00 Test Item Value Reference Range Comments Urine glucose detection by test strip (test code = NEGATIVE NEGATIVE 84950-0) Urine Gclvmbayf8082-46-81 12:59:00 Test Item Value Reference Range Comments Urine total bilirubin detection by test strip (test NEGATIVE NEGATIVE code = 5770-3) Urine Yzuwbkh4797-68-15 12:59:00 Test Item Value Reference Range Comments Urine ketones detection by test strip (test code = NEGATIVE NEGATIVE 2514-8) Urine Specific Jgbxiaz7026-60-20 12:59:00 Test Item Value Reference Range Comments Specific gravity of Urine by Refractometry automated 1.021 1.010-1.025 (test code = 39739-7) Urine Occult Yarrc3540-58-44 12:59:00 Test Item Value Reference Range Comments Urine erythrocytes detection (test code = 58782-4) NEGATIVE NEG, TRACE Urine hU5854-03-35 12:59:00 Test Item Value Reference Range Comments Urine pH measurement (test code = 2756-5) 6.5 5.0-7. 5 Urine Giwoist3949-81-59 12:59:00 Test Item Value Reference Range Comments Urine protein detection by test strip (test code = NEGATIVE NEG, TRACE 43708-9) Urine Truxzjifdudo4172-90-84 12:59:00 Test Item Value Reference Range Comments Urine urobilinogen measurement (test code = 25697-6) 1.0 >0.2 Urine Diawlxx6563-98-18 12:59:00 Test Item Value Reference Range Comments Urine nitrite detection (test code = 36617-8) NEGATIVE NE GATIVE Urine Leukocyte Msubzkss9081-88-11 12:59:00 Test Item Value Reference Range Comments Leukocyte esterase ur dipstick (test code = 5799-2) NEGATIVE NEG, TRACE Tricyclic antidepressants [presence] in urine by screen pqjhxb7776-39-38 17:55:00 Test Item Value Reference Range Comments Tricyclic antidepressants [presence] in urine by Negative Negative screen method (test code = 27568-9) Urine drug screen comment wpvxgbcbkjkuug4541-61-89 17:55:00 Test Item Value Reference Range Comments Urine drug screen comment interpretation (test SEE BELOW code = 58097-4) NOTE for POSITIVES: These are preliminary results for medical decision making only. The physician should client solutions director whether or not confirmatory testing is clinically indicated.Glucose [mass/volume] in serum or mrcejn6434-56-63 17:45:00 Test Item Value Reference Range Comments Glucose [mass/volume] in serum or plasma (test code = 96 70-99 2345-7) Urea nitrogen [mass/volume] in serum or yieftz6255-78-68 17:45:00 Test Item Value Reference Range Comments Urea nitrogen [mass/volume] in serum or plasma (test 9 22 code = 3094-0) Creatinine [mass/volume] in serum or drazli7845-09-24 17:45:00 Test Item Value Reference Range Comments Creatinine [mass/volume] in serum or plasma (test code 1.02 0.50-1.20 = 2160-0) Blood urea nitrogen/creatinine mass eldng0887-85-61 17:45:00 Test Item Value Reference Range Comments Blood urea nitrogen/creatinine mass ratio (test code = 8.8 08-31 84282-3) Estimated glomerular filtration rate (GFR) non- Rxyblcuz6137-75-07 17:45:00 Test Item Value Reference Range Comments Estimated glomerular filtration rate (GFR) non- > 60 >60 Palestinian (test code = 75511-3) Reference Range: > or = 60 Units: mL/min/1.73 m2 Original MDRD Study Group Equation UsedEstimated glomerular filtration rate (GFR) 2016-06-21 17:45:00 Test Item Value Reference Range Comments Estimated glomerular filtration rate (GFR) > 60 >60 Palestinian (test code = 04835-2) Reference Range: > or = 60 Units: mL/min/1.73 m2 Original MDRD Study Group Equation UsedSerum or plasma sodium measurement (mass or moles/volume)2016-06-21 17:45:00 Test Item Value Reference Range Comments Serum or plasma sodium measurement (mass or 144 137- 147 moles/volume) (test code = 2951-2) Potassium [moles/volume] in serum or wiufoh2489-52-48 17:45:00 Test Item Value Reference Range Comments Potassium [moles/volume] in serum or plasma (test code 4.0 3.5-5.0 = 2823-3) Chloride [moles/volume] in serum or fzsujd6874-95-01 17:45:00 Test Item Value Reference Range Comments Chloride [moles/volume] in serum or plasma (test code 113 98-106 = 2075-0) Carbon dioxide, total [moles/volume] in serum or jcvkin1348-03-71 17:45:00 Test Item Value Reference Range Comments Carbon dioxide, total [moles/volume] in serum or 24 23-33 plasma (test code = 8-9) Serum or plasma anion phb3706-84-99 17:45:00 Test Item Value Reference Range Comments Serum or plasma anion gap (test code = 87329-7) 7.0 4-16 Osmolality of serum or plasma by wfobdncwfcz7184-12-27 17:45:00 Test Item Value Reference Range Comments Osmolality of serum or plasma by calculation (test 285 280-300 code = 50152-2) Calcium [mass/volume] in serum or yagthi6550-55-03 17:45:00 Test Item Value Reference Range Comments Calcium [mass/volume] in serum or plasma (test code = 9.6 8.4-10.6 39591-3) Protein [mass/volume] in serum or mnujme5043-74-45 17:45:00 Test Item Value Reference Range Comments Protein [mass/volume] in serum or plasma (test code = 6.8 6.3-8.2 2885-2) Albumin [mass/volume] in serum or mojrsa3893-94-95 17:45:00 Test Item Value Reference Range Comments Albumin [mass/volume] in serum or plasma (test code = 4.1 3.5-5.0 1751-7) Bilirubin.total [mass/volume] in serum or jvvfnl3893-35-11 17:45:00 Test Item Value Reference Range Comments Bilirubin.total [mass/volume] in serum or plasma (test 0.9 0.2-1.2 code = 1975-2) Aspartate aminotransferase [enzymatic activity/volume] in serum or plasma 2016-06-21 17:45:00 Test Item Value Reference Range Comments Aspartate aminotransferase [enzymatic activity/volume] 20 5-34 in serum or plasma (test code = 1920-8) Alanine aminotransferase [enzymatic activity/volume] in serum or plasma 2016-06-21 17:45:00 Test Item Value Reference Range Comments Alanine aminotransferase [enzymatic activity/volume] 28 0-55 in serum or plasma (test code = 1742-6) Alkaline phosphatase [enzymatic activity/volume] in serum or ijbujj6318-98-71 17:45:00 Test Item Value Reference Range Comments Alkaline phosphatase [enzymatic activity/volume] in 57 38-126 serum or plasma (test code = 6768-6) Creatine kinase [enzymatic activity/volume] in serum or qxrgvq0628-97-41 17:45:00 Test Item Value Reference Range Comments Creatine kinase [enzymatic activity/volume] in serum 134 30-200 or plasma (test code = 2157-6) Ethanol [mass/volume] in serum or cjwigf8563-29-60 17:45:00 Test Item Value Reference Range Comments Ethanol [mass/volume] in serum or plasma (test code = >0 5643-2) Normal Value Indicated by a Result of <10Amphetamines [presence] in urine by screen udhrbf4309-04-20 17:44:00 Test Item Value Reference Range Comments Amphetamines [presence] in urine by screen method Negative Negative (test code = 89913-7) Barbiturates [presence] in urine by screen dgdnrx0987-77-15 17:44:00 Test Item Value Reference Range Comments Barbiturates [presence] in urine by screen method Negative Negative (test code = 75344-5) Benzodiazepines [presence] in urine by screen ctllvz8963-00-95 17:44:00 Test Item Value Reference Range Comments Benzodiazepines [presence] in urine by screen Negative Ne gative method (test code = 65011-9) Benzoylecgonine [presence] in urine by screen hozzrb4430-25-35 17:44:00 Test Item Value Reference Range Comments Benzoylecgonine [presence] in urine by screen Negative Ne gative method (test code = 10113-6) Methadone [presence] in urine by screen fdtygp3638-98-07 17:44:00 Test Item Value Reference Range Comments Methadone [presence] in urine by screen method Negative N egative (test code = 02095-8) Opiates [presence] in urine by screen bcfjwr8117-77-79 17:44:00 Test Item Value Reference Range Comments Opiates [presence] in urine by screen method (test Negative Negative code = 02449-6) Phencyclidine [presence] in urine by screen velnrj8139-57-28 17:44:00 Test Item Value Reference Range Comments Phencyclidine [presence] in urine by screen method Negative Negative (test code = 76181-3) Cannabinoids [presence] in urine by screen vexrmw0147-05-28 17:44:00 Test Item Value Reference Range Comments Cannabinoids [presence] in urine by screen method Positive Negative (test code = 35991-3) Urinalysis specimen collection sutofd6361-60-30 17:38:00 Test Item Value Reference Range Comments Urinalysis specimen collection method (test code = URN,CC 61377-3) Urine color wgokhzgerrqjn6915-23-92 17:38:00 Test Item Value Reference Range Comments Urine color determination (test code = 5778-6) YELLOW Urine appearance ofulchcgrqpsq9274-83-47 17:38:00 Test Item Value Reference Range Comments Urine appearance determination (test code = 5767-9) CLEAR Glucose [presence] in khxys0302-93-03 17:38:00 Test Item Value Reference Range Comments Glucose [presence] in urine (test code = 2349-9) NEGATIVE NEGATIVE Bilirubin.total [presence] in urine by automated test ebhxf8902-46-46 17:38:00 Test Item Value Reference Range Comments Bilirubin.total [presence] in urine by automated NEGATIVE NEGATIVE test strip (test code = 49036-1) Ketones [presence] in urine by test eyjtk9758-49-12 17:38:00 Test Item Value Reference Range Comments Ketones [presence] in urine by test strip (test NEGATIVE NEGATIVE code = 2514-8) Specific gravity of bxgzq8536-13-65 17:38:00 Test Item Value Reference Range Comments Specific gravity of urine (test code = 2965-2) 1.016 1 .010-1.025 Hemoglobin [presence] in urine by automated test pprqo2584-72-34 17:38:00 Test Item Value Reference Range Comments Hemoglobin [presence] in urine by automated test NEGATIVE NEG, TRACE strip (test code = 08062-1) PH of urine by automated test almys0941-47-44 17:38:00 Test Item Value Reference Range Comments PH of urine by automated test strip (test code = 8.0 66397-5) Leukocyte esterase [presence] in urine by automated test vpbgv3835-77-56 17:38:00 Test Item Value Reference Range Comments Leukocyte esterase [presence] in urine by automated NEGATIVE NEG, TRACE test strip (test code = 56159-1) Urobilinogen [presence] in urine by automated test szlwb7432-15-12 17:38:00 Test Item Value Reference Range Comments Urobilinogen [presence] in urine by automated test 0.2 >0.2 strip (test code = 45344-8) Nitrite [presence] in urine by automated test khtfb1014-56-58 17:38:00 Test Item Value Reference Range Comments Nitrite [presence] in urine by automated test strip NEGATIVE NEGATIVE (test code = 76421-1) Urine leukocyte esterase detection by automated test dtzag3414-92-92 17:38:00 Test Item Value Reference Range Comments Urine leukocyte esterase detection by automated NEGATIVE NEG, TRACE test strip (test code = 01137-6) Blood prothrombin time (PT) by coagulation qqdgd0502-91-76 17:32:00 Test Item Value Reference Range Comments Blood prothrombin time (PT) by coagulation assay (test 11.4 9.6-11.2 code = 5964-2) Coagulation tissue factor induced TMK3007-64-86 17:32:00 Test Item Value Reference Range Comments Coagulation tissue factor induced INR (test code = 1.1 0.9-1.0 6301-6) INR values are recommended for outpatient coumadin monitoringActivated partial thromboplastin time (aPTT)2016-06-21 17:32:00 Test Item Value Reference Range Comments Activated partial thromboplastin time (aPTT) (test 28.7 23.7-30.0 code = 59777914) Absolute lymphocyte wgzug4458-51-05 17:24:00 Test Item Value Reference Range Comments Absolute lymphocyte count (test code = 48397-3) 0.9 1.2-3.4 Absolute monocyte msthn3265-74-60 17:24:00 Test Item Value Reference Range Comments Absolute monocyte count (test code = 742-7) 0.3 0.1- 0.6 Blood eosinophils count (number/volume)2016-06-21 17:24:00 Test Item Value Reference Range Comments Blood eosinophils count (number/volume) (test code = 0.1 0.0-0.5 06082-3) Blood basophils count (number/volume)2016-06-21 17:24:00 Test Item Value Reference Range Comments Blood basophils count (number/volume) (test code = 0.0 0.0-0.1 23132-5) White blood cell count (WBC)2016-06-21 17:24:00 Test Item Value Reference Range Comments White blood cell count (WBC) (test code = INO8563) 5.8 4.8-10.8 Blood erythrocytes count (number/volume)2016-06-21 17:24:00 Test Item Value Reference Range Comments Blood erythrocytes count (number/volume) (test code = 4.36 4.6-6.1 23989-7) Blood hemoglobin measurement (mass/volume)2016-06-21 17:24:00 Test Item Value Reference Range Comments Blood hemoglobin measurement (mass/volume) (test code 14.0 14.0-18.0 = 718-7) Blood hematocrit (volume fraction)2016-06-21 17:24:00 Test Item Value Reference Range Comments Blood hematocrit (volume fraction) (test code = 41.2 42.0-52.0 17149-5) [id number] 17:24:00 Test Item Value Reference Range Comments MCV (test code = 724096350) 94.6 80.0-96.0 [id number] 17:24:00 Test Item Value Reference Range Comments MCH (test code = 61433-8) 32.2 27.0-32.0 Erythrocyte mean corpuscular hemoglobin concentration measurement (mass/volume) 2016-06-21 17:24:00 Test Item Value Reference Range Comments Erythrocyte mean corpuscular hemoglobin concentration 34.1 33.0-36.0 measurement (mass/volume) (test code = 28333-1) Erythrocyte distribution width [id number] 17:24:00 Test Item Value Reference Range Comments Erythrocyte distribution width ratio (test code = 12.8 10.0-14.5 20704-4) Blood platelets count (number/volume)2016-06-21 17:24:00 Test Item Value Reference Range Comments Blood platelets count (number/volume) (test code = 162 130-400 63597-2) Neutrophils seg % [id number] 17:24:00 Test Item Value Reference Range Comments Neutrophils seg % bld (test code = 43597-2) 77.4 42.0 -75.0 Lymphocyte %2016-06-21 17:24:00 Test Item Value Reference Range Comments Lymphocyte % (test code = 344069601) 16.0 20.0-51.0 Pierce %2016-06-21 17:24:00 Test Item Value Reference Range Comments Pierce % (test code = 5905-5) 4.7 3.5-12.0 Eos %2016-06-21 17:24:00 Test Item Value Reference Range Comments Eos % (test code = 713-8) 1.7 0.0-2.0 Baso %2016-06-21 17:24:00 Test Item Value Reference Range Comments Baso % (test code = 706-2) 0.2 0.0-1.0 Absolute neutrophil [id number] 17:24:00 Test Item Value Reference Range Comments Absolute neutrophil count (test code = 751-8) 4.5 1. 4-6.5 CT BRAIN WO CONTRASTPAT NAME: SERGIO HEATH : 05/01/1996ADDRESS: [address] SEX: MPHONE: AGE: 20PRIORITY: ERLOCATION: ERM ORD PHY: Kiel ZHANG MDMR#: [id number] PT CLASS: REG ERDATE OF EXAM: 06/21/2016EXAMINATION: CT BRAIN WO CONTRASTHEAD CT WITHOUT CONTRASTClinical History: AMS/weak/dizzy/unresponsive 2 and a half hoursTechnique: Unenhanced serial axial images of the head were obtained from the level of the vertexto the base of the skull.Findings: No evidence of acute intracranial hemorrhage, acute infarct, mass, or midline shift isseen. The ventricles are not dilated. The basal ganglia, posterior fossa, and brainstem appearnormal. The visualized paranasal sinuses and mastoid air cells are well-aerated.Impression: No evidence of acute intracranial hemorrhage or midline shift.Final report electronically signed by: BLADIMIR JonesERPRETING PHYSICIAN: Chemo JONES document has been electronically signed by RIZWANA UGALDE DO on 06/21/2016 18:22:39.Order # [id number] 1822PORTABLE CHEST APPAT NAME: SERGIO HEATH : 05/01/1996ADDRESS: [address] SEX: MPHONE: AGE: 20PRIORITY: ERLOCATION: ERM ORD PHY: Kiel ZHANG [facility] [id number]#: [id number] PT CLASS: REG ERDATE OF EXAM: 06/21/2016EXAMINATION: PORTABLE CHEST APCHEST PORTABLE1 VIEWClinical History: Acute onset AMS/weak/dizzy. Syncopal episode today.[facility] One [facility].Findings: No acute pulmonary consolidation, infiltrate, or pneumothorax is seen. The cardiacsilhouette size is normal. Pulmonary vasculature and mediastinal structures are unremarkable.Impression: No evidence of acute cardiopulmonary disease.Final report electronically signed by: BLADIMIR JonesERPRESAMRA PHYSICIAN: Chemo JONES document has been electronically signed by RIZWANA UGALDE DO on 06/21/2016 18:15:33.Order # [id number]/08/27 1815 Encounters Start End Encounter Admission Attending Care Care Encounter Date/Time Date/Time Type Type Clinicians Facility Department ID 2018-01-17 2018-01-18 [id number] 22:07:00 13:04:[address] 2017-12-04 2017-12-04 Departed [facility] [id number] 14:05:00 14:05:[address] 2016-06-21 2016-06-21 [id number] 16:58:00 16:58:[address] Payers Payer Name Policy Type Policy Number Effective Date Expiration D ate [facility] [id number] Medicaid [place] [employer] [id number] Self Pay Social History This patient has no known social history. Vital Signs Vital Name Observation Time Observation Value Comments WEIGHT 2018-01-17 22:07:00 68.606167 kg HEIGHT 2018-01-17 22:07:00 167.033803 cm WEIGHT 2017-12-04 14:05:00 59.768880 kg HEIGHT 2017-12-04 14:05:00 167.441341 cm WEIGHT 2016-06-21 16:58:00 58.504569 kg HEIGHT 2016-06-21 16:58:00 167.995475 cm WEIGHT 2016-04-07 20:56:00 59.164129 kg HEIGHT 2016-04-07 20:56:00 167.935885 cm Hospital Discharge Instructions No hospital discharge instruction information available.No hospital discharge instruction information available.No hospital discharge instructions.
[2020-12-02 01:53] VITALS: BP 139/96
== END 2020-12-02 01:55 | disposition home or self-care (01) ==
LOC: ER 00:12
DX: S21.231A Puncture wound without foreign body of right back wall of thorax without penetration into thoracic cavity, initial encounter (principal); R00.0 Tachycardia, unspecified; X95.9XXA Assault by unspecified firearm discharge, initial encounter; F17.200 Nicotine dependence, unspecified, uncomplicated; Z23 Encounter for immunization
CPT/HCPCS: 99284; 90471; 96374; 96375; 71045; 90715; J3010; J1885; J3490